=== PATIENT | female | born 1950 | race Hispanic/Latino ===

== ENCOUNTER 2017-03-15 11:54 | Observation (INO) | payer MEDICARE, OTHER ==
--- NOTE | 2017-03-15 12:16 | ED PDOC ---
Arrival/HPI - General Chief Complaint: Shortness Of Breath Time Seen by Provider: 03/15/17 11:55 Historian: Patient - History of Present Illness Time/Duration: Other (2 weeks) Symptom Onset: Gradual Symptom Course: Unchanged Severity Level: Moderate Associated Symptoms (Text): 03/15/17 12:13 Patient has dyspnea on exertion for the last 2 weeks which has been getting worse. She was seen by her PMD and had some blood work drawn. Her hemoglobin was 6.8. She was seen in the office today again by her PMD who did a rectal exam and found it was guaiac positive. She was directed to the emergency department for evaluation and treatment and admission. Patient does have an aortic valve replacement and is on Coumadin. No chest pain or palpitations. No abdominal pain nausea or vomiting. No dizziness or lightheadedness. There is generalized weakness and fatigue. Past Medical History - Infectious Disease Hx of Infectious Diseases: None - Reproductive Menopause: Yes - Endocrine/Metabolic Hx Diabetes Mellitus Type 2: Yes - Psychiatric Hx Substance Use: No - Surgical History Other/Comment: aortic valve replacement 1988 - Anesthesia Hx Anesthesia Reactions: No Hx Malignant Hyperthermia: No Family/Social History - Physician Review Nursing Documentation Reviewed: Yes Family/Social History: Unknown Family HX Smoking Status: Never Smoked Hx Alcohol Use: No Hx Substance Use: No Allergies/Home Meds Allergies/Adverse Reactions: Allergies Penicillins Allergy (Verified 03/15/17 11:57) RASH Home Medications: Home Meds Medication Instructions Recorded Confirmed Atorvastatin [Lipitor] 40 mg PO DAILY 03/15/17 03/15/17 Colchicine [Colcrys] 0.6 mg PO DAILY 03/15/17 03/15/17 Digoxin [Digitek] 250 mcg PO DAILY 03/15/17 03/15/17 Febuxostat [Uloric] 80 mg PO DAILY 03/15/17 03/15/17 Fluoxetine HCl [Fluoxetine HCl] 60 mg PO DAILY 03/15/17 03/15/17 Fluticasone Nasal [Flonase] 50 mcg JD DAILY 03/15/17 03/15/17 Furosemide [Lasix] 20 mg PO DAILY 03/15/17 03/15/17 Glimepiride [amaRYL] 4 mg PO BID 03/15/17 03/15/17 Leflunomide [Arava] 20 mg PO DAILY 03/15/17 03/15/17 Levothyroxine [Synthroid] 175 mcg PO DAILY 03/15/17 03/15/17 Losartan/Hydrochlorothiazide 1 tab PO DAILY 03/15/17 03/15/17 [Losartan-Hctz 100-25 mg Tab] Mirtazapine [Remeron] 15 mg PO DAILY 03/15/17 03/15/17 Potassium Chloride [Klor-Con M10] 10 meq PO DAILY 03/15/17 03/15/17 Tofacitinib Citrate [Xeljanz] 1 mg PO DAILY 03/15/17 03/15/17 Warfarin [Coumadin] 2.5 mg PO DAILY 03/15/17 03/15/17 metFORMIN [glucOPHAGE] 500 mg PO BID 03/15/17 03/15/17 Review of Systems - Physician Review All systems were reviewed & negative as marked: Yes - Review of Systems Constitutional: Fatigue. absent: Fevers Respiratory: SOB. absent: Cough, Sputum, Wheezing Cardiovascular: absent: Chest Pain, Palpitations, Syncope Gastrointestinal: absent: Abdominal Pain, Constipation, Diarrhea, Nausea, Vomiting Genitourinary Female: absent: Dysuria, Frequency, Hematuria Neurological: absent: Headache, Dizziness, Focal Weakness Physical Exam Vital Signs Temp Pulse Resp BP Pulse Ox 03/15/17 12:25 20 03/15/17 12:15 97.8 F 50 L 18 148/48 L 100 Temperature: Afebrile Blood Pressure: Normal Pulse: Regular Respiratory Rate: Normal Appearance: Positive for: Well-Appearing, Non-Toxic, Comfortable Pain Distress: None Mental Status: Positive for: Alert and Oriented X 3 Finger Stick Blood Glucose: 163 - Systems Exam Head: Present: Atraumatic, Normocephalic Pupils: Present: PERRL Extroacular Muscles: Present: EOMI Conjunctiva: Present: Normal Mouth: Present: Moist Mucous Membranes Pharnyx: No: ERYTHEMA, EXUDATE, TONSILS ENLARGED Neck: Present: Normal Range of Motion Respiratory/Chest: Present: Clear to Auscultation, Good Air Exchange, Decreased Breath Sounds. No: Respiratory Distress, Accessory Muscle Use Cardiovascular: Present: Regular Rate and Rhythm, Normal S1, S2, Bradycardic. No: Murmurs Abdomen: Present: Normal Bowel Sounds. No: Tenderness, Distention, Peritoneal Signs, Rebound, Guarding Rectal: Present: Other (Rectal exam deferred as the patient had a rectal exam done in the PMDs office just prior to arrival and it was guaiac positive) Upper Extremity: Present: Normal Inspection. No: Cyanosis, Edema Lower Extremity: Present: Normal Inspection. No: Edema Neurological: Present: GCS=15, CN II-XII Intact, Speech Normal, Motor Func Grossly Intact Skin: Present: Warm, Dry, Normal Color, Pale. No: Rashes Psychiatric: Present: Alert, Oriented x 3, Normal Insight, Normal Concentration Medical Decision Making ED Course and Treatment: 03/15/17 12:16 EKG shows normal sinus rhythm rate approximately 55 with a sinus arrhythmia and ST depressions laterally and inferiorly. No old available for comparison. She denies any chest pain. - Lab Interpretations Lab Results: 03/15/17 12:15 03/15/17 12:15 Lab Results 03/15/17 12:30: Digoxin 2.5 H* 03/15/17 12:15: Sodium 137, Potassium 4.2, Chloride 100, Carbon Dioxide 25, Anion Gap 16, BUN 74 H, Creatinine 2.3 H, Est GFR ( Amer) 26, Est GFR ( Non-Af Amer) 21, Random Glucose 131 H, Calcium 10.2, Total Bilirubin 0.4, AST 39 , ALT 50, Alkaline Phosphatase 88, Lactate Dehydrogenase 728 H, Total Creatine Kinase 158, Troponin I 0.03, Total Protein 7.8, Albumin 4.7, Globulin 3.1, Albumin/Globulin Ratio 1.5, Amylase 94, Lipase 374 H 03/15/17 12:15: PT 18.7 H, INR 1.73 H, APTT 30.0 03/15/17 12:15: WBC 5.6, RBC 2.95 L, Hgb 7.1 L, Hct 23.6 L, MCV 80.0, MCH 24.1 L , MCHC 30.1 L, RDW 17.0 H, Plt Count 204, MPV 12.1 H, Gran % 70.4 H, Lymph % ( Auto) 18.0 L, [place] % (Auto) 10.2 H, Eos % (Auto) 0.9 L, Baso % (Auto) 0.5, Gran # 3.94, Lymph # 1.0 L, [place] # 0.6, Eos # 0.1, Baso # 0.03 03/15/17 12:06: POC Glucose (mg/dL) 163 H 03/15/17 12:00: Urine Color Yellow, Urine Appearance Clear, Urine pH 6.0, Ur Specific [place] 1.010, Urine Protein Negative, Urine Glucose (UA) Negative, Urine Ketones Negative, Urine Blood Negative, Urine Nitrate Negative, Urine Bilirubin Negative, Urine Urobilinogen 0.2, Ur Leukocyte Esterase Negative - RAD Interpretation Radiology Orders: 03/15/17 11:58 CHEST PORTABLE [RAD] Stat - Medication Orders Current Medication Orders: Discontinued Medications Pantoprazole Sodium (Protonix Inj) 40 mg IVP ONCE STA Stop: 03/15/17 12:00 Last Admin: 03/15/17 12:43 Dose: 40 mg Disposition/Present on Arrival - Present on Arrival Any Indicators Present on Arrival: No History of DVT/PE: No History of Uncontrolled Diabetes: Yes Urinary Catheter: No History of Decub. Ulcer: No History Surgical Site Infection Following: None - Disposition Have Diagnosis and Disposition been Completed?: Yes Diagnosis: Gastrointestinal hemorrhage, Anemia, Renal failure, Dehydration, Digoxin toxicity, Elevated lipase Disposition: HOSPITALIZED Disposition Time: 12:56 Patient Plan: Observation Patient Problems: Current Active Problems Problem Status Onset Anemia Acute Dehydration Acute Digoxin toxicity Acute Gastrointestinal hemorrhage Acute Renal failure Acute Condition: FAIR
--- NOTE | 2017-03-15 12:23 | RAD ---
HISTORY: admit COMPARISON: Chest x-ray performed 03/15/17 TECHNIQUE: Chest, one view. FINDINGS: LUNGS: No focal consolidation. Please note that chest x-ray has limited sensitivity for the detection of pulmonary masses. PLEURA: No significant pleural effusion identified. No definite pneumothorax . CARDIOVASCULAR: Median sternotomy wires. Cardiomegaly. Radiopaque oblong density projects over the left heart shadow. OSSEOUS STRUCTURES: Degenerative changes of the spine and shoulders. VISUALIZED UPPER ABDOMEN: Unremarkable. OTHER FINDINGS: None. IMPRESSION: No focal consolidation, significant pleural effusion, or definite pneumothorax identified.
[2017-03-15 12:29] LABS: URINE BILIRUBIN NEGATIVE (NEGATIVE); URINE BLOOD NEGATIVE (NEGATIVE); URINE GLUCOSE (UA) NEGATIVE (NEGATIVE); URINE KETONE NEGATIVE (NEGATIVE); URINE LEUKOCYTE ESTERASE NEGATIVE Leu/uL (NEGATIVE); URINE PROTEIN NEGATIVE mg/dL (<30 mg/dL); URINE UROBILINOGEN 0.2 E.U./dL (<1 E.U./dL)
[2017-03-15 12:31] LABS: ADD MANUAL DIFF? NO
[2017-03-15 12:33] LABS: URINE APPEARANCE CLEAR (CLEAR); URINE COLOR YELLOW (YELLOW)
[2017-03-15 12:37] LABS: BASO # 0.03 K/mm3 (0.0-2.0); BASO % 0.5 % (0.0-3.0); EOS # 0.1 (0.0-0.7); EOS % 0.9 % (1.5-5.0); GRAN # 3.94 (1.4-6.5); GRAN % 70.4 % (50.0-68.0); MEAN CORPUSCULAR HEMOGLOBIN 24.1 pg (25.0-35.0); MEAN CORPUSCULAR HGB CONC 30.1 g/dl (31.0-37.0); MEAN PLATELET VOLUME 12.1 fl (7.0-11.0); MONO # 0.6 (0.1-0.6); MONO % 10.2 % (1.0-6.0); PLATELET COUNT 204 10^3/uL (120.0-450.0); WHITE BLOOD COUNT 5.6 10^3/ul (4.5-11.0)
[2017-03-15 12:43] LABS: HEMATOCRIT 23.6 % (36.0-48.0)
[2017-03-15 12:45] LABS: ALB/GLOB RATIO 1.5 (1.1-1.8); BILIRUBIN,TOTAL 0.4 mg/dL (0.2-1.3); CALCIUM 10.2 mg/dL (8.4-10.5); POTASSIUM 4.2 mmol/L (3.6-5.0); TOTAL PROTEIN 7.8 g/dL (5.8-8.3)
[2017-03-15 12:47] LABS: INR 1.73 (0.93-1.08)
[2017-03-15 12:56] LABS: TROPONIN I 0.03 ng/mL
[2017-03-15] MEDS: Fluticasone Nasal 50 mcg/Spray NAS SCH (16:12)
[2017-03-15] MEDS: Digoxin 250 mcg (0.25 mg) Tab PO SCH (16:12)
[2017-03-15] MEDS: Levothyroxine 175 MCG TAB PO SCH ×2 (16:18→22:48)
[2017-03-15 16:47] VITALS: BMI 24.0
[2017-03-15] MEDS ORDERED: Pneumococcal 23-Valent Vaccine IM ONE (16:48)
[2017-03-15] MEDS: Insulin Reg-LOW-Coverage SC SCH (17:46)
[2017-03-15 18:29] LABS: IRON 30 ug/dL (45-180)
--- NOTE | 2017-03-15 18:51 | CARD ---
APPROVED REPORT EKG Measurement Heart [id number] CT [id number] [id number] <Conclusion> Sinus bradycardia with premature atrial complexes ST & T wave abnormality, consider inferior ischemia ST & T wave abnormality, consider anterolateral ischemia Abnormal ECG
[2017-03-16 07:43] VITALS: O2SAT 98
[2017-03-16] MEDS: Insulin Reg-LOW-Coverage SC SCH ×2 (07:59→12:45)
[2017-03-16 08:06] LABS: HEMATOCRIT 25.5 % (36.0-48.0); MEAN CELL VOLUME 79.2 fL (80.0-105.0); MEAN CORPUSCULAR HEMOGLOBIN 24.8 pg (25.0-35.0); MEAN CORPUSCULAR HGB CONC 31.4 g/dl (31.0-37.0); MEAN PLATELET VOLUME 10.4 fl (7.0-11.0); RED CELL DISTRIBUTION WIDTH 16.3 % (11.5-14.5); WHITE BLOOD COUNT 4.3 10^3/ul (4.5-11.0)
[2017-03-16] MEDS: Levothyroxine 175 MCG TAB PO SCH (09:46)
[2017-03-16] MEDS: Fluticasone Nasal 50 mcg/Spray NAS SCH (09:55)
[2017-03-16] MEDS: Digoxin 250 mcg (0.25 mg) Tab PO SCH (11:20)
[2017-03-16 13:58] VITALS: BP 129/59; PULSE 47; RESP 18; TEMP 98.4
[2017-03-16 15:20] LABS: HEMATOCRIT 28.5 % (36.0-48.0); MEAN CELL VOLUME 78.9 fL (80.0-105.0); MEAN PLATELET VOLUME 10.5 fl (7.0-11.0); RED CELL DISTRIBUTION WIDTH 15.8 % (11.5-14.5); WHITE BLOOD COUNT 5.4 10^3/ul (4.5-11.0)
--- NOTE | 2017-03-18 07:32 | HP ---
HISTORY OF PRESENT ILLNESS: The patient is a 66-year-old white female patient of Dr. Lesly Fernandez. S he came to Emergency Room with extreme weakness. The patient states she went to see Dr. Lesly Fernandez who called ambulance and sent her to Emergency Room. The patient states she has been extremely weak, has been getting short of breath on minimal walking. According to ER notes, also the patient was ev aluated by PMD who did a rectal exam was found to be guaiac positive, so she was sent to the Emergenc y Room. Denies any rectal bleeding, denies any hematuria. Denies any gum bleeding. She has had no history of fever, no chills, no nausea, no vomiting, no diarrhea. PAST MEDICAL HISTORY: 1. Significant for an open heart surgery for aortic valve replacement and she is on Coumadin. 2. History of uterine cancer status post total abdominal hysterectomy. 3. Non-insulin dependent diabetes. 4. Status post aortic valve replacement in 1988. 5. Hypertension. 6. Depression. 7. History of gout. 8. Diabetic neuropathy. 9. Cardiac arrhythmia and chronic atrial fibrillation, and she is being monitored at [facility] arrhythmia center. ALLERGIES: PENICILLIN. MEDICATIONS AT HOME: She is on: 1. Metformin 500 twice a day. 2. Coumadin 2.5 daily. 3. KCl 10 mEq daily. 4. Remeron 15 mg at bedtime. 5. Losartan 100 mg daily. 6. Levothyroxine mcg daily. 7. mg daily. 8. Amaryl 4 mg twice a day. 9. Lasix 20 mg daily. 10. Flonase daily. 11. Fluoxetine 60 mg daily. 12. Uloric 80 mg daily. 13. Digoxin 250 mcg daily. 14. Colchicine 0.6 mg daily. 15. Lipitor 40 mg daily. 16. . 17. Percocet. 18. Iron sulfate. 19. Xeljanz. SOCIAL HISTORY: She is , has grown up children. Lives by herself, is a homemaker. Denies s moking or alcohol use. REVIEW OF SYSTEMS: Generalized weakness and poor appetite. PHYSICAL EXAMINATION: GENERAL: She is awake and alert, communicative. VITAL SIGNS: She is afebrile, pulse 40, respirations 18, blood pressure 125/48. LUNGS: Bilateral fair airflow, no rhonchi or crackle. HEART: S1, S2 audible. ABDOMEN: Soft, nontender, no rebound, no guarding. NEUROLOGIC: She is awake and alert, communicative, moves all extremities. EXTREMITIES: Bilateral leg, no edema. LABORATORY DATA: Upon admission, her WBC 5.6, hemoglobin 7.1, hematocrit 23.6, platelets of 204. PT 18.7, INR 1.73. Chemistry: Sodium 130, TIBC 587, saturation is 5%. On admission, sodium 137, pota ssium 4.2, chloride 100, CO2 25, BUN 72, creatinine 2.3, blood sugar of 131, lipase 374. Urinalysis is unremarkable. Digoxin level is 2.5. X-ray chest, no focal consolidation, significant pleural eff usion. ASSESSMENT: 1. Symptomatic anemia, etiology unknown yet, history of positive guaiac. 2. Status post aortic valve replacement, on Coumadin. 3. Non-insulin dependent diabetes. 4. Hypertension. 5. Hyperlipidemia. 6. Hypothyroidism. PLAN: The patient is receiving right now. She will get another blood transfusion. After that , the patient wants to do GI workup as outpatient. She wants to be discharged. We will order a CBC 1 hour after finishing the transfusion. If it is between 9 and 10, she can be discharged today. Anna Mcfarlane MD cc: [phone] TT: 03/16/2017 14:30:55 dn 03/18/2017 06:31:30
--- NOTE | 2017-04-03 22:51 | DS ---
The patient is a 66-year-old patient of Dr. Lesly Fernandez who came in with extreme weakness with increa sing shortness of breath and difficulty walking. She was also found to have a guaiac positive in PMD 's office. She was found to be anemic with hemoglobin of 7.1. So, she was referred for blood transf usion. The patient received 2 blood transfusions and she wanted to go home. She wanted to have a GI workup done as outpatient since she has a longstanding history of other cardiac issues including aor tic valve replacement and she is on anticoagulation and Coumadin. 1. Non-insulin dependent diabetes. 2. Hypertension. 3. Hyperlipidemia. So she received a blood transfusion and was discharged since her repeat hemoglobin was 9.4 and she wi ll follow with Dr. Lesly Fernandez as an outpatient. Anna Mcfarlane MD cc: [phone] TT: 04/03/2017 22:50:14 an
== END 2017-03-16 16:04 | disposition home or self-care (01) ==
LOC: ED 11:54 → ERH 13:00 → 3RSO 14:44
PROVIDERS: ADMIT Internal Medicine Nephrology; ATTEND Internal Medicine Nephrology
DX: K92.2 Gastrointestinal hemorrhage, unspecified (principal); D64.9 Anemia, unspecified; E86.0 Dehydration; T46.0X5A Adverse effect of cardiac-stimulant glycosides and drugs of similar action, initial encounter; I10 Essential (primary) hypertension; F32.9 Major depressive disorder, single episode, unspecified; M10.9 Gout, unspecified; E09.40 Drug or chemical induced diabetes mellitus with neurological complications with diabetic neuropathy, unspecified; I49.8 Other specified cardiac arrhythmias
CPT/HCPCS: 36415; 36430; 71010; 80053; 80162; 81003; 82150; 82550; 82728; 82948; 83540; 83550; 83615; 83690; 84484; 85025; 85027; 85610; 85730; 86850; 86900; 86920; 93005; 96374; 99285; C9113; G0378; J1756; P9016

== ENCOUNTER 2017-04-22 08:10 | Inpatient (IN) | payer MEDICARE, OTHER ==
[2017-04-22] MEDS ORDERED: Non Formulary Medication (Losartan/Hydrochlorothiazide [Losartan-Hctz 100-25 Mg Tab] 1 TAB PO SCH (10:00)
[2017-04-22 10:08] LABS: BASO # 0.02 K/mm3 (0.0-2.0); BASO % 0.5 % (0.0-3.0); EOS # 0.1 (0.0-0.7); EOS % 1.7 % (1.5-5.0); GRAN # 2.57 (1.4-6.5); GRAN % 60.8 % (50.0-68.0); HEMOGLOBIN 10.2 gm/dL (12.0-16.0); LYMPH # 1.1 (1.2-3.4); LYMPH % 26.3 % (22.0-35.0); MEAN CELL VOLUME 83.5 fL (80.0-105.0); MEAN CORPUSCULAR HEMOGLOBIN 26.2 pg (25.0-35.0); MEAN CORPUSCULAR HGB CONC 31.4 g/dl (31.0-37.0); MEAN PLATELET VOLUME 10.9 fl (7.0-11.0); MONO # 0.5 (0.1-0.6); MONO % 10.7 % (1.0-6.0); PLATELET COUNT 100 10^3/uL (120.0-450.0); RBC 3.89 10^6/uL (3.5-6.1); RED CELL DISTRIBUTION WIDTH 18.7 % (11.5-14.5); WHITE BLOOD COUNT 4.2 10^3/ul (4.5-11.0)
[2017-04-22 10:15] LABS: ALB/GLOB RATIO 1.4 (1.1-1.8); ALBUMIN 4.2 g/dL (3.0-4.8); CALCIUM 9.8 mg/dL (8.4-10.5)
[2017-04-22 10:16] LABS: INR 1.85 (0.93-1.08); PARTIAL THROMBOPLASTIN TIME 32.4 Seconds (23.7-30.8)
[2017-04-22] MEDS: Fluticasone Nasal 50 mcg/Spray NAS SCH (10:30)
[2017-04-22] MEDS: Levothyroxine 175 MCG TAB PO SCH (10:30)
--- NOTE | 2017-04-22 10:46 | ED PDOC ---
Arrival/HPI - General Chief Complaint: Dizziness/Lightheaded Time Seen by Provider: 04/22/17 08:12 Historian: Patient - History of Present Illness Narrative History of Present Illness (Text): 04/22/17 9:21 A 66 year old female, whose past medical history includes aortic valve replacement on warfarin, presents to the emergency department complaining of lightheadedness. Patient reports she had a blood transfusion about 1 month ago in this hospital. At that time, patient was found to be guaiac positive. Patient reports dizziness but denies any vomiting, shortness of breath, pain, palpitations or any other complaints at this time. PMD: Dr. Lesly morel. 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") - Endocrine/Metabolic Hx Diabetes Mellitus Type 2: Yes - Integumentary Other/Comment: multiple bruises to ble and left arm pt on coumadin, 4th toe b/l feet crosses over 5th toe 4th toe right foot has 0.2cm red round dry wound pt keeps small cusions around 4th toes for protection - Musculoskeletal/Rheumatological Hx Musculoskeletal Disorders: Yes (rheumatoid arthritis) Hx Falls: No Hx Gout: Yes Hx Unsteady Gait: Yes (cane) - Genitourinary/Gynecological Hx Genitourinary Disorders: Yes (fibrocystic breasts) - Psychiatric Hx Depression: Yes Hx Substance Use: No - Surgical History Other/Comment: aortic valve replacement 1988, computer chip in left breast for heart monitoring done at [facility] heart rhythm wilson - Anesthesia Hx Anesthesia: Yes Hx Anesthesia Reactions: No Hx Malignant Hyperthermia: No Family/Social History - Physician Review Nursing Documentation Reviewed: Yes Family/Social History: No Known Family HX Smoking Status: Never Smoked Hx Alcohol Use: No Hx Substance Use: No Allergies/Home Meds Allergies/Adverse Reactions: Allergies Penicillins Allergy (Verified 04/22/17 08:56) RASH Home Medications: Home Meds Medication Instructions Recorded Confirmed Atorvastatin [Lipitor] 40 mg PO DAILY 03/15/17 04/22/17 Carboxymethylcellulose Sodium 1 each OP DAILY 03/15/17 04/22/17 [Thera Tears] Cetirizine HCl [Zyrtec] 10 mg PO DAILY 03/15/17 04/22/17 Colchicine [Colcrys] 0.6 mg PO DAILY 03/15/17 04/22/17 Febuxostat [Uloric] 80 mg PO DAILY 03/15/17 04/22/17 Ferrous Sulfate [Feosol] 325 mg PO BID 03/15/17 04/22/17 Fluoxetine HCl 60 mg PO DAILY 03/15/17 04/22/17 Fluticasone Nasal [Flonase] 50 mcg JD DAILY 03/15/17 04/22/17 Furosemide [Lasix] 20 mg PO QOTHERDAY 03/15/17 04/22/17 Glimepiride [amaRYL] 4 mg PO BID 03/15/17 04/22/17 Leflunomide [Arava] 20 mg PO DAILY 03/15/17 04/22/17 Levothyroxine [Synthroid] 175 mcg PO DAILY 03/15/17 04/22/17 Losartan/Hydrochlorothiazide 1 tab PO DAILY 03/15/17 04/22/17 [Losartan-Hctz 100-25 mg Tab] Mirtazapine [Remeron] 15 mg PO HS 03/15/17 04/22/17 Pzrpr-6-Ejuk Ethyl Esters [OMEGA 3] 500 mg PO DAILY 03/15/17 04/22/17 Oxycodone HCl/Acetaminophen 1 tab PO DAILY PRN 03/15/17 04/22/17 [Oxycodone-Acetaminophen 5-325] Potassium Chloride [Klor-Con M10] 10 meq PO QOTHERDAY 03/15/17 04/22/17 Tofacitinib Citrate [Xeljanz] 1 mg PO DAILY 03/15/17 04/22/17 Warfarin [Coumadin] 2.5 mg PO DAILY 03/15/17 04/22/17 Review of Systems - Physician Review All systems were reviewed & negative as marked: Yes - Review of Systems Constitutional: Other (lightheadedness) Respiratory: absent: SOB Cardiovascular: absent: Palpitations Gastrointestinal: absent: Abdominal Pain, Vomiting Neurological: Dizziness Physical Exam - Physical Exam Narrative Physical Exam (Text): Constitutional: No acute distress. Head: Normocephalic. Atraumatic. Eyes: PERRL. ENT: Moist mucous membranes. Neck: Supple. Cardiovascular: Regular rate. Audible valve. Chest: No tenderness. Respiratory: Clear to auscultation bilaterally. GI: Soft. Nontender. Nondistended. Back: No CVA tenderness. Musculoskeletal: No tenderness or swelling of extremities. Skin: No rash. Neurologic: Alert, no focal deficit. Lower extremity: cap refill < 2 sec Vital Signs Reviewed: Yes Vital Signs Temp Pulse Resp BP Pulse Ox 04/22/17 11:51 109/66 04/22/17 11:30 62 18 104/51 L 98 04/22/17 08:52 98.7 F 72 18 119/67 100 Temperature: Afebrile Blood Pressure: Normal Pulse: Regular Respiratory Rate: Normal Appearance: Positive for: Well-Appearing, Non-Toxic, Comfortable Pain Distress: None Mental Status: Positive for: Alert and Oriented X 3 Medical Decision Making ED Course and Treatment: 04/22/17 10:41 Impression: A 66 year old female with lightheadedness with recent GI bleed and anemia requiring blood transfusion. Plan: -- EKG -- chest xray -- labs -- Urinalysis -- Reassess and disposition Prior Visits: Notes and results from previous visits were reviewed. Patient last reported to the emergency department on 03/15/17 for evaluation of above mentioned. Progress Notes: EKG: Ordered, reviewed, and independently interpreted the EKG. Rate : 70 BPM Rhythm : NSR Interpretation : ST depressions/T wave inversions, lateral leads similar to previous EKG about a month ago. Chest xray: Creator : Santhosh Varela MD 04/22/17 10:55 IMPRESSION: No active disease. Dr. Cantrell accepts patient to his service. Dr. Knapp notified for GI bleed , will perform colonoscopy. - Lab Interpretations Lab Results: 04/22/17 09:50 04/22/17 09:50 Lab Results 04/22/17 09:50: Digoxin < 0.4 L 04/22/17 09:50: PT 20.0 H, INR 1.85 H, APTT 32.4 H 04/22/17 09:50: Sodium 142, Potassium 4.4, Chloride 104, Carbon Dioxide 29, Anion Gap 13, BUN 60 H, Creatinine 1.6 H, Est GFR ( Amer) 39, Est GFR ( Non-Af Amer) 32, Random Glucose 73, Calcium 9.8, Total Bilirubin 0.4, AST 58 H, ALT 72 H, Alkaline Phosphatase 83, Total Protein 7.3, Albumin 4.2, Globulin 3.0 , Albumin/Globulin Ratio 1.4 04/22/17 09:50: WBC 4.2 L D, RBC 3.89, Hgb 10.2 L, Hct 32.5 L, MCV 83.5, MCH 26.2, MCHC 31.4, RDW 18.7 H, Plt Count 100 L, MPV 10.9, Gran % 60.8, Lymph % ( Auto) 26.3, [place] % (Auto) 10.7 H, Eos % (Auto) 1.7, Baso % (Auto) 0.5, Gran # 2.57, Lymph # 1.1 L, [place] # 0.5, Eos # 0.1, Baso # 0.02 I have reviewed the lab results: Yes - RAD Interpretation Radiology Orders: 04/22/17 09:43 CHEST PORTABLE [RAD] Stat - EKG Interpretation Interpreted by ED Physician: Yes Type: 12 lead EKG - Medication Orders Current Medication Orders: Atorvastatin Calcium (Lipitor) 40 mg PO DAILY [facility] Last Admin: 04/22/17 10:30 Dose: Colchicine (Colocrys) 0.6 mg PO DAILY [facility] Last Admin: 04/22/17 10:30 Dose: Fluticasone Propionate (Flonase) 1 actuation JD DAILY [facility] Last Admin: 04/22/17 10:30 Dose: Furosemide (Lasix) 20 mg PO QOTHERDAY [facility] Last Admin: 04/22/17 11:51 Dose: 20 mg Glimepiride (Amaryl) 4 mg PO BID [facility] Last Admin: 04/22/17 10:30 Dose: Hydrochlorothiazide (Hydrodiuril) 25 mg PO DAILY [facility] Last Admin: 04/22/17 10:30 Dose: Insulin Human Regular (Humulin R Med) 0 units SC [facility] PRN Reason: Protocol Last Admin: 04/22/17 11:53 Dose: Levothyroxine Sodium (Synthroid) 175 mcg PO DAILY [facility] Last Admin: 04/22/17 10:30 Dose: Losartan Potassium (Cozaar) 100 mg PO DAILY [facility] Last Admin: 04/22/17 10:30 Dose: Mirtazapine (Remeron) 15 mg PO [facility] - Scribe Statement The provider has reviewed the documentation as recorded by the Dwight Schilling Provider Scribe Attestation: All medical record entries made by the Julesibmarcela were at my direction and personally dictated by me. I have reviewed the chart and agree that the record accurately reflects my personal performance of the history, physical exam, medical decision making, and the department course for this patient. I have also personally directed, reviewed, and agree with the discharge instructions and disposition. Disposition/Present on Arrival - Present on Arrival Any Indicators Present on Arrival: No History of DVT/PE: No History of Uncontrolled Diabetes: No Urinary Catheter: No History of Decub. Ulcer: No History Surgical Site Infection Following: None - Disposition Have Diagnosis and Disposition been Completed?: Yes Diagnosis: GI bleed, Symptomatic anemia Disposition: HOSPITALIZED Disposition Time: 10:23 Patient Plan: Admission Condition: FAIR
--- NOTE | 2017-04-22 10:54 | RAD ---
HISTORY: weakness COMPARISON: 03/15/2017 FINDINGS: LUNGS: No active pulmonary disease. PLEURA: No significant pleural effusion identified, no pneumothorax apparent. CARDIOVASCULAR: Mild cardiomegaly. Sternal wires are present OSSEOUS STRUCTURES: No significant abnormalities. VISUALIZED UPPER ABDOMEN: Normal. OTHER FINDINGS: None. IMPRESSION: No active disease.
[2017-04-22 11:22] LABS: URINE BILIRUBIN NEGATIVE (NEGATIVE); URINE BLOOD NEGATIVE (NEGATIVE); URINE GLUCOSE (UA) NEGATIVE (NEGATIVE); URINE LEUKOCYTE ESTERASE NEGATIVE Leu/uL (NEGATIVE); URINE NITRATE NEGATIVE (NEGATIVE); URINE PROTEIN NEGATIVE mg/dL (<30 mg/dL); URINE UROBILINOGEN 0.2 E.U./dL (<1 E.U./dL)
[2017-04-22 11:26] LABS: URINE APPEARANCE CLEAR (CLEAR); URINE COLOR YELLOW (YELLOW)
[2017-04-22] MEDS: Insulin Reg-MEDIUM-Coverage SC SCH ×3 (11:53→22:52)
[2017-04-22 13:34] VITALS: BMI 25.4
[2017-04-22] MEDS ORDERED: Bisacodyl 5mg EC Tab PO ONE (14:15)
--- NOTE | 2017-04-22 14:21 | CP.PCM.CON ---
<Dhara Dowd - Last Filed: 04/22/17 14:59> History of Present Illness - History of Present Illness History of Present Illness: Seen and examined in the ER earlier today, Chart reviewed. Request for consult is for : Anemia/GI Bleed HPI: This is a 66 year old female with a PMH of [place] Aortic valve on Coumadin , monitor chip at [facility] for cardiac arrhythmia, for heart rhythm center, recent admission for symptomatic Anemia and guaic positive, patient now comes with complaints of lightheadedness, and blood per rectum and weakness. Does have nausea but no vomiting. No c/o weight loss, abdominal pain, sob or chest pain. Last colon was 7 years ago no history of polyps, does not recall having EGD. Was taking Lovenox at home,last dose 04/21/17. PMH: [place] Aortic valve, uterine cancer, NIDDM, htn,depression, gout, diabetic neuropathy, cardiac arrhythmia and chronic atrial fibrillation and monitor [facility] arrythmia center. SHX: hysterectomy, valve replacement FHX: DM, HD, cervical cancer Social HX: denies smoking, etoh, drugs MEDS: reviewed as per MAR Allergies: Penicillins ROS: systems reviewed with positive findings, see MAR Past Patient History - Infectious Disease Hx of Infectious Diseases: None - Past Social History Smoking Status: Never Smoked - CARDIAC Hx Cardiac Disorders: Yes Hx Peripheral Edema: Yes (ble +2 pitting) Other/Comment: aortic valve replacement 1988, computer chip implanted in left breast for heart monitoring at [facility] heart rhythm center - HEENT Hx HEENT Problems: Yes (eyeglases) - RENAL Hx Renal Failure: Yes ("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 gout") - ENDOCRINE/METABOLIC Hx Diabetes Mellitus Type 2: Yes - INTEGUMENTARY Other/Comment: multiple bruises to ble and left arm pt on coumadin, 4th toe b/l feet crosses over 5th toe 4th toe right foot has 0.2cm red round dry wound pt keeps small cusions around 4th toes for protection - MUSCULOSKELETAL/RHEUMATOLOGICAL Hx Musculoskeletal Disorders: Yes (rheumatoid arthritis) Hx Falls: No Hx Gout: Yes Hx Unsteady Gait: Yes (cane) - GENITOURINARY/GYNECOLOGICAL Hx Genitourinary Disorders: Yes (fibrocystic breasts) - PSYCHIATRIC Hx Depression: Yes - SURGICAL HISTORY Other/Comment: aortic valve replacement 1988, computer chip in left breast for heart monitoring done at [facility] heart rhythm center - ANESTHESIA Hx Anesthesia: Yes Hx Anesthesia Reactions: No Hx Malignant Hyperthermia: No Meds Allergies/Adverse Reactions: Allergies Allergy/AdvReac Type Severity Reaction Status Date / Time Penicillins Allergy RASH Verified 04/22/17 08:56 - Medications Medications: Current Medications Atorvastatin Calcium (Lipitor) 40 mg PO DAILY [facility] Last Admin: 04/22/17 10:30 Dose: Not Given Colchicine (Colocrys) 0.6 mg PO DAILY [facility] Last Admin: 04/22/17 10:30 Dose: Not Given Fluoxetine HCl (Prozac) 60 mg PO DAILY [facility] Fluticasone Propionate (Flonase) 1 actuation JD DAILY [facility] Last Admin: 04/22/17 10:30 Dose: Not Given Furosemide (Lasix) 20 mg PO QOTHERDAY [facility] Last Admin: 04/22/17 11:30 Dose: Not Given Hydrochlorothiazide (Hydrodiuril) 25 mg PO DAILY [facility] Last Admin: 04/22/17 10:30 Dose: Not Given Insulin Human Regular (Humulin R Med) 0 units SC [facility] PRN Reason: Protocol Last Admin: 04/22/17 11:53 Dose: Not Given Levothyroxine Sodium (Synthroid) 175 mcg PO DAILY [facility] Last Admin: 04/22/17 10:30 Dose: Not Given Losartan Potassium (Cozaar) 100 mg PO DAILY [facility] Last Admin: 04/22/17 10:30 Dose: Not Given Mirtazapine (Remeron) 30 mg PO [facility] Polyethylene Glycol/Electrolytes (Golytely) 4,000 ml PO ONCE ONE Stop: 04/22/17 16:01 Potassium Chloride (Klor-Con 10) 10 meq PO QOTHERDAY [facility] Physical Exam - Constitutional Appears: No Acute Distress - Head Exam Head Exam: NORMAL INSPECTION - Eye Exam Eye Exam: Normal appearance. absent: Scleral icterus - ENT Exam ENT Exam: Mucous Membranes Moist - Neck Exam Neck exam: Positive for: Normal Inspection - Respiratory Exam Respiratory Exam: Clear to Auscultation Bilateral, NORMAL BREATHING PATTERN. absent: Respiratory Distress - Cardiovascular Exam Cardiovascular Exam: +S1, +S2 - GI/Abdominal Exam GI & Abdominal Exam: Normal Bowel Sounds, Soft. absent: Distended, Organomegaly , Rebound, Tenderness - Extremities Exam Extremities exam: Positive for: normal inspection, pedal pulses present. Negative for: calf tenderness, pedal edema - Neurological Exam Neurological exam: Alert, Oriented x3 - Skin Skin Exam: Dry, Warm Results - Vital Signs Recent Vital Signs: Last Vital Signs Temp 98.4 F 04/22/17 13:15 Pulse 80 04/22/17 13:15 Resp 18 04/22/17 13:15 BP 117/60 04/22/17 13:15 Pulse Ox 97 04/22/17 12:30 - Labs Result Diagrams: 04/22/17 09:50 04/22/17 09:50 Labs: Laboratory Results - last 24 hr 04/22/17 04/22/17 04/22/17 10:45 10:54 11:43 POC Glucose (mg/dL) 73 Urine Color Yellow Urine Appearance Clear Urine pH 7.0 Ur Specific [place] 1.010 Urine Protein Negative Urine Glucose (UA) Negative Urine Ketones Negative Urine Blood Negative Urine Nitrate Negative Urine Bilirubin Negative Urine Urobilinogen 0.2 Ur Leukocyte Esterase Negative Blood Type A POSITIVE Antibody Screen Negative BBK History Checked Patient has bt 04/22/17 12:29 POC Glucose (mg/dL) 111 H Urine Color Urine Appearance Urine pH Ur Specific [place] Urine Protein Urine Glucose (UA) Urine Ketones Urine Blood Urine Nitrate Urine Bilirubin Urine Urobilinogen Ur Leukocyte Esterase Blood Type Antibody Screen BBK History Checked Assessment & Plan - Assessment and Plan (Free Text) Assessment: ASSESSMENT: GI Bleed, r/o angiodysplasia, PUD, polyps, malignancy Anemia Aortic valve replacement Cardiac arrhythmia, monitored in [facility] arrhythmia [facility]. DM HTN PLAN: clear liquid bowel prep: Golytle at 4 pm, see orders check labs in am: cbc,bmp,pt/ptt npo 12 midnight except meds Thank you for this consult and for allowing us to participate in your patient care, will make further recommendations based upon clinical course. Seen and discussed with Dr. Knapp. <Jayson Knapp V - Last Filed: 04/23/17 00:45> Meds - Medications Medications: Current Medications Atorvastatin Calcium (Lipitor) 40 mg PO DAILY [facility] Last Admin: 04/22/17 10:30 Dose: Not Given Colchicine (Colocrys) 0.6 mg PO DAILY [facility] Last Admin: 04/22/17 10:30 Dose: Not Given Fluoxetine HCl (Prozac) 60 mg PO DAILY [facility] Fluticasone Propionate (Flonase) 1 actuation JD DAILY [facility] Last Admin: 04/22/17 10:30 Dose: Not Given Furosemide (Lasix) 20 mg PO QOTHERDAY [facility] Last Admin: 04/22/17 11:30 Dose: Not Given Hydrochlorothiazide (Hydrodiuril) 25 mg PO DAILY [facility] Last Admin: 04/22/17 10:30 Dose: Not Given Insulin Human Regular (Humulin R Med) 0 units SC [facility] PRN Reason: Protocol Last Admin: 04/22/17 22:52 Dose: Not Given Levothyroxine Sodium (Synthroid) 175 mcg PO DAILY [facility] Last Admin: 04/22/17 10:30 Dose: Not Given Losartan Potassium (Cozaar) 100 mg PO DAILY [facility] Last Admin: 04/22/17 10:30 Dose: Not Given Mirtazapine (Remeron) 30 mg PO HS [facility] Last Admin: 04/22/17 22:48 Dose: 30 mg Potassium Chloride (Klor-Con 10) 10 meq PO QOTHERDAY [facility] Results - Vital Signs Recent Vital Signs: Last Vital Signs Temp 98.4 F 04/22/17 16:16 Pulse 64 04/22/17 16:16 Resp 18 04/22/17 16:16 BP 111/58 L 04/22/17 16:16 Pulse Ox 97 04/22/17 16:16 - Labs Result Diagrams: 04/22/17 09:50 04/22/17 09:50 Labs: Laboratory Results - last 24 hr 04/22/17 04/22/17 04/22/17 10:45 10:54 11:43 POC Glucose (mg/dL) 73 Urine Color Yellow Urine Appearance Clear Urine pH 7.0 Ur Specific [place] 1.010 Urine Protein Negative Urine Glucose (UA) Negative Urine Ketones Negative Urine Blood Negative Urine Nitrate Negative Urine Bilirubin Negative Urine Urobilinogen 0.2 Ur Leukocyte Esterase Negative Blood Type A POSITIVE Antibody Screen Negative BBK History Checked Patient has bt 04/22/17 12:29 POC Glucose (mg/dL) 111 H Urine Color Urine Appearance Urine pH Ur Specific [place] Urine Protein Urine Glucose (UA) Urine Ketones Urine Blood Urine Nitrate Urine Bilirubin Urine Urobilinogen Ur Leukocyte Esterase Blood Type Antibody Screen BBK History Checked Attending/Attestation - Attestation I have personally seen and examined this patient.: Yes I have fully participated in the care of the patient.: Yes I have reviewed all pertinent clinical information: Yes Notes (Text): INR is elevated 1.8mm. Patient
[2017-04-22] MEDS ORDERED: Peg-Electrolyte Oral Soln 4L (Golytely) PO ONE (16:00)
--- NOTE | 2017-04-22 17:38 | CARD ---
APPROVED REPORT EKG Measurement Heart [id number] <Conclusion> Normal sinus rhythm ST & T wave abnormality, consider lateral ischemia Abnormal ECG
[2017-04-23 07:36] LABS: BASO # 0.01 K/mm3 (0.0-2.0); BASO % 0.3 % (0.0-3.0); EOS # 0.1 (0.0-0.7); EOS % 2.6 % (1.5-5.0); GRAN # 2.48 (1.4-6.5); GRAN % 64.4 % (50.0-68.0); LYMPH # 0.8 (1.2-3.4); MEAN CELL VOLUME 84.2 fL (80.0-105.0); MEAN CORPUSCULAR HEMOGLOBIN 26.4 pg (25.0-35.0); MEAN CORPUSCULAR HGB CONC 31.3 g/dl (31.0-37.0); MEAN PLATELET VOLUME 11.2 fl (7.0-11.0); MONO # 0.5 (0.1-0.6); MONO % 11.7 % (1.0-6.0); PLATELET COUNT 105 10^3/uL (120.0-450.0); RBC 3.79 10^6/uL (3.5-6.1); RED CELL DISTRIBUTION WIDTH 18.7 % (11.5-14.5); WHITE BLOOD COUNT 3.9 10^3/ul (4.5-11.0)
[2017-04-23 07:46] LABS: INR 1.45 (0.93-1.08); PARTIAL THROMBOPLASTIN TIME 31.5 Seconds (23.7-30.8); PROTHROMBIN TIME 15.7 Seconds (9.9-11.8)
[2017-04-23 07:50] LABS: CALCIUM 9.8 mg/dL (8.4-10.5)
[2017-04-23] MEDS: Insulin Reg-MEDIUM-Coverage SC SCH ×3 (08:16→16:47)
[2017-04-23 08:37] VITALS: TEMP 98.2
[2017-04-23] MEDS: Levothyroxine 175 MCG TAB PO SCH (09:52)
[2017-04-23] MEDS: Fluticasone Nasal 50 mcg/Spray NAS SCH (10:01)
[2017-04-23] MEDS ORDERED: Propofol 10 mg/ml Inj (20 ML) ONE (17:49)
[2017-04-23] MEDS ORDERED: Sodium Chloride 0.9% 1,000 ML IV SCH (19:00)
[2017-04-23 19:17] VITALS: BP 142/63; PULSE 60; RESP 18; O2SAT 98
--- NOTE | 2017-04-23 21:36 | CP.PCM.HP ---
History of Present Illness - History of Present Illness History of Present Illness: Pt with anemia, Has hx of hem + stool. She is on coumadin. No pain. Present on Admission - Present on Admission Any Indicators Present on Admission: No Review of Systems - Review of Systems All systems: reviewed and no additional remarkable complaints except - Constitutional Constitutional: absent: Fatigue, Malaise, Night Sweats, Weakness - EENT Eyes: absent: Change in Vision, Diplopia, Irritation, Loss of Peripheral Vision , Photophobia Nose/Mouth/Throat: absent: Nasal Trauma, Bleeding Gums, Change in Voice - Breasts Breasts: absent: Mass - Cardiovascular Cardiovascular: absent: Chest Pain with Activity, Irregular Heart Rhythm - Respiratory Respiratory: absent: Stridor, Excessive Mucous Production - Gastrointestinal Gastrointestinal: absent: Dyspepsia, Excessive Flatus, Hematemesis, Hematochezia - Genitourinary Genitourinary: absent: Hematuria, Pyuria, Nocturia - Musculoskeletal Musculoskeletal: absent: Joint Swelling, Limited Range of Motion, Muscle Weakness, Myalgias - Neurological Neurological: absent: Disequilibrium, Frequent Falls, Memory Loss, Paresthesias , Other Visual Disturbances - Endocrine Endocrine: absent: Palpitations, Polydipsia, Polyphagia Past Patient History - Infectious Disease Hx of Infectious Diseases: None - Past Social History Smoking Status: Never Smoked - CARDIAC Hx Cardiac Disorders: Yes Hx Peripheral Edema: Yes (ble +2 pitting) Other/Comment: aortic valve replacement 1988, computer chip implanted in left breast for heart monitoring at [facility] rhythm [facility] - HEENT Hx HEENT Problems: Yes (eyeglases) - RENAL Hx Renal Failure: Yes ("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 gout") - ENDOCRINE/METABOLIC Hx Diabetes Mellitus Type 2: Yes - HEMATOLOGICAL/ONCOLOGICAL Hx Blood Transfusions: Yes Hx Blood Transfusion Reaction: No - INTEGUMENTARY Other/Comment: multiple bruises to ble and left arm pt on coumadin, 4th toe b/l feet crosses over 5th toe 4th toe right foot has 0.2cm red round dry wound pt keeps small cusions around 4th toes for protection - MUSCULOSKELETAL/RHEUMATOLOGICAL Hx Musculoskeletal Disorders: Yes (rheumatoid arthritis) Hx Falls: No Hx Gout: Yes Hx Unsteady Gait: Yes (cane) - GENITOURINARY/GYNECOLOGICAL Hx Genitourinary Disorders: Yes (fibrocystic breasts) - PSYCHIATRIC Hx Depression: Yes - SURGICAL HISTORY Other/Comment: aortic valve replacement 1988, computer chip in left breast for heart monitoring done at [facility] rhythm center - ANESTHESIA Hx Anesthesia Reactions: No Hx Malignant Hyperthermia: No Meds Home Medications: Home Medication List Medication Instructions Recorded Confirmed Type Omeprazole 40 mg PO DAILY #30 capsule. 04/23/17 Rx Allergies/Adverse Reactions: Allergies Allergy/AdvReac Type Severity Reaction Status Date / Time Penicillins Allergy RASH Verified 04/22/17 08:56 Physical Exam - Constitutional Appears: Well - Head Exam Head Exam: ATRAUMATIC, NORMAL INSPECTION, NORMOCEPHALIC - Eye Exam Eye Exam: EOMI, Normal appearance, PERRL Pupil Exam: NORMAL ACCOMODATION, PERRL - ENT Exam ENT Exam: Mucous Membranes Dry - Neck Exam Neck exam: Positive for: Normal Inspection - Respiratory Exam Respiratory Exam: Clear to Auscultation Bilateral, NORMAL BREATHING PATTERN - Cardiovascular Exam Cardiovascular Exam: REGULAR RHYTHM, RRR. absent: +S1, +S2 - GI/Abdominal Exam GI & Abdominal Exam: Normal Bowel Sounds, Soft. absent: Hypoactive Bowel Sounds , Tenderness - Neurological Exam Neurological exam: Alert, CN II-XII Intact, Normal Gait, Oriented x3, Reflexes Normal - Psychiatric Exam Psychiatric exam: Normal Affect, Normal Mood - Skin Skin Exam: Dry, Intact, Normal Color, Warm Results - Vital Signs Recent Vital Signs: Last Vital Signs Temp 98.2 F 04/23/17 19:15 Pulse 60 04/23/17 19:15 Resp 18 04/23/17 19:15 BP 142/63 04/23/17 19:15 Pulse Ox 98 04/23/17 19:15 - Labs Result Diagrams: 04/23/17 06:45 04/23/17 06:45 Labs: Laboratory Results - last 24 hr 04/23/17 04/23/17 04/23/17 06:45 06:45 06:45 WBC 3.9 L RBC 3.79 Hgb 10.0 L Hct 31.9 L MCV 84.2 MCH 26.4 MCHC 31.3 RDW 18.7 H Plt Count 105 L MPV 11.2 H Gran % 64.4 Lymph % (Auto) 21.0 L [place] % (Auto) 11.7 H Eos % (Auto) 2.6 Baso % (Auto) 0.3 Gran # 2.48 Lymph # 0.8 L [place] # 0.5 Eos # 0.1 Baso # 0.01 PT 15.7 H INR 1.45 H APTT 31.5 H Sodium 143 Potassium 3.8 Chloride 104 Carbon Dioxide 27 Anion Gap 16 BUN 37 H Creatinine 1.3 Est GFR ( Amer) 49 Est GFR (Non-Af Amer) 41 Random Glucose 105 Calcium 9.8 Assessment & Plan - Assessment and Plan (Free Text) Assessment: Heme positive stool Anemia Plan: will bring into hospital Will need colonoscopy. GI evaluation. Spoke to PMD Dr Fernandez - Date & Time Date: 04/23/17 Time: 09:30
[2017-04-24] MEDS ORDERED: Potassium Chloride 10 mEq ER Tab PO SCH (10:00)
== END 2017-04-23 21:59 | disposition home or self-care (01) | DRG 377 ==
LOC: ED 08:10 → ERH 10:34 → 5RNO 12:12
PROVIDERS: ADMIT Internal Medicine Nephrology; ATTEND Internal Medicine Nephrology
PROC: 0DB68ZX Excision of Stomach, Via Natural or Artificial Opening Endoscopic, Diagnostic (ICD-10-PCS; principal; 2017-04-23 16:15)
PROC: 0DJD8ZZ Inspection of Lower Intestinal Tract, Via Natural or Artificial Opening Endoscopic (ICD-10-PCS; 2017-04-23 16:15)
DX: K92.2 Gastrointestinal hemorrhage, unspecified (principal); K56.2 Volvulus; E11.40 Type 2 diabetes mellitus with diabetic neuropathy, unspecified; I48.2 Chronic atrial fibrillation; K26.9 Duodenal ulcer, unspecified as acute or chronic, without hemorrhage or perforation; K29.50 Unspecified chronic gastritis without bleeding; K31.9 Disease of stomach and duodenum, unspecified; I10 Essential (primary) hypertension; K64.8 Other hemorrhoids; M10.9 Gout, unspecified; D64.9 Anemia, unspecified; F32.9 Major depressive disorder, single episode, unspecified; Z79.01 Long term (current) use of anticoagulants; Z95.2 Presence of prosthetic heart valve; Z85.42 Personal history of malignant neoplasm of other parts of uterus; Z79.84 Long term (current) use of oral hypoglycemic drugs; Z88.0 Allergy status to penicillin

== ENCOUNTER 2018-07-22 14:54 | Inpatient (IN) | payer MEDICARE, OTHER ==
[2018-07-22] MEDS ORDERED: Pantoprazole 40mg/100mL NS 40 MG/100 ML BAG IVPB SCH (16:15)
[2018-07-22 16:20] LABS: BASO # 0.02 K/mm3 (0.0-2.0); BASO % 0.3 % (0.0-3.0); EOS # 0.2 (0.0-0.7); EOS % 2.8 % (1.5-5.0); GRAN # 4.18 (1.4-6.5); GRAN % 72.6 % (50.0-68.0); HEMOGLOBIN 9.8 g/dL (12.0-16.0); LYMPH # 0.8 (1.2-3.4); LYMPH % 13.4 % (22.0-35.0); MEAN CELL VOLUME 83.9 fl (80.0-105.0); MEAN CORPUSCULAR HEMOGLOBIN 26.8 pg (25.0-35.0); MEAN CORPUSCULAR HGB CONC 31.9 g/dl (31.0-37.0); MEAN PLATELET VOLUME 11.4 fl (7.0-11.0); MONO # 0.6 (0.1-0.6); MONO % 10.9 % (1.0-6.0); RBC 3.66 10^6/uL (3.5-6.1); RED CELL DISTRIBUTION WIDTH 15.6 % (11.5-14.5); WHITE BLOOD COUNT 5.8 10^3/ul (4.5-11.0)
--- NOTE | 2018-07-22 16:21 | ED PDOC ---
Arrival/HPI - General Chief Complaint: GI Problem Time Seen by Provider: 07/22/18 15:13 Historian: Patient - History of Present Illness Narrative History of Present Illness (Text): 07/22/18 16:14 68 year old female, with past medical history of [place] Aortic valve on Coumadin, uterine cancer, NIDDM, htn,depression, gout, diabetic neuropathy, cardiac arrhythmia and chronic atrial fibrillation, presents to the Emergency Department complaining of bloody black tarry stool since 2 weeks. Patient informs associated left lower quadrant abdominal pain and lightheadedness but denies any loss of conscious since onset. Patient informs visiting her PMD with the presented symptoms, who subsequently referred her to the Emergency Department for evaluation of possible GI bleed. Patient denies any other associated somatic complaints. Patient denies any fever, chills, nausea, vomiting, chest pain, shortness of breath, neck pain, back pain, headache, or any other complaints. PMD: Dr. Fernandez GI: Dr. Knapp [facility] Physicist: YESICA Time/Duration: > week (2 weeks) Symptom Onset: Gradual Symptom Course: Unchanged Activities at Onset: Light Context: Home Past Medical History - Provider Review Nursing Documentation Reviewed: Yes - Infectious Disease Hx of Infectious Diseases: None - Cardiac Hx Cardiac Disorders: Yes Hx Peripheral Edema: Yes - Pulmonary Hx Respiratory Disorders: No Other/Comment: IMPLANTED HR MONITOR - Neurological Hx Neurological Disorder: Yes HX Cerebrovascular Accident: Yes Other/Comment: NEUROPATHY - HEENT Hx HEENT Disorder: Yes (eyeglases) - Renal Hx Renal Disorder: Yes Hx Renal Failure: Yes - Endocrine/Metabolic Hx Endocrine Disorders: Yes Hx Diabetes Mellitus Type 2: Yes - Hematological/Oncological Hx Blood Disorders: Yes Hx Blood Transfusions: Yes - Integumentary Other/Comment: multiple bruises to ble and left arm pt on coumadin, 4th toe b/l feet crosses over 5th toe 4th toe right foot has 0.2cm red round dry wound pt keeps small cusions around 4th toes for protection - Musculoskeletal/Rheumatological Hx Musculoskeletal Disorders: Yes (rheumatoid arthritis) Hx Falls: No Hx Gout: Yes Hx Unsteady Gait: Yes (cane) - Gastrointestinal Hx Gastrointestinal Disorders: Yes - Genitourinary/Gynecological Hx Genitourinary Disorders: Yes (fibrocystic breasts) - Psychiatric Hx Psychophysiologic Disorder: Yes Hx Depression: Yes Hx Substance Use: No - Surgical History Other/Comment: aortic valve replacement 1988, computer chip in left breast for heart monitoring done at [facility] rhythm center - Anesthesia Hx Anesthesia Reactions: No Hx Malignant Hyperthermia: No Family/Social History - Physician Review Nursing Documentation Reviewed: Yes Family/Social History: No Known Family HX Smoking Status: Never Smoked Hx Alcohol Use: No Hx Substance Use: No Allergies/Home Meds Allergies/Adverse Reactions: Allergies Penicillins Allergy (Verified 04/22/17 08:56) RASH Home Medications: Home Meds Medication Instructions Recorded Confirmed Atorvastatin [Lipitor] 40 mg PO DAILY 03/15/17 07/22/18 Carboxymethylcellulose Sodium 1 each OP DAILY 03/15/17 07/22/18 [Thera Tears] Cetirizine HCl [Zyrtec] 10 mg PO DAILY 03/15/17 07/22/18 Colchicine [Colcrys] 0.6 mg PO DAILY 03/15/17 07/22/18 Febuxostat [Uloric] 80 mg PO DAILY 03/15/17 07/22/18 Ferrous Sulfate [Feosol] 2 tab PO DAILY 03/15/17 07/22/18 Fluoxetine HCl 60 mg PO DAILY 03/15/17 07/22/18 Fluticasone Nasal [Flonase] 50 mcg JD DAILY 03/15/17 07/22/18 Furosemide [Lasix] 40 mg PO QOTHERDAY 03/15/17 07/22/18 Leflunomide [Arava] 20 mg PO DAILY 03/15/17 07/22/18 Levothyroxine [Synthroid] 175 mcg PO DAILY 03/15/17 07/22/18 Mirtazapine [Remeron] 30 mg PO HS 03/15/17 07/22/18 [id number]-[id number] Ethyl Esters [OMEGA 3] 500 mg PO DAILY 03/15/17 07/22/18 Oxycodone HCl/Acetaminophen 1 tab PO DAILY PRN 03/15/17 07/22/18 [Oxycodone-Acetaminophen 5-325] Potassium Chloride [Klor-Con M10] 10 meq PO QOTHERDAY 03/15/17 07/22/18 Tofacitinib Citrate [Xeljanz] 1 mg PO DAILY 03/15/17 07/22/18 Azilsartan Med/Chlorthalidone 1 tab PO DAILY 07/22/18 07/22/18 [Edarbyclor 40-12.5 mg Tablet] Warfarin [Coumadin] 2.5 mg PO DAILY 07/22/18 07/22/18 Warfarin [Coumadin] 2.5 mg PO QOTHERDAY 07/22/18 07/22/18 Review of Systems - Physician Review All systems were reviewed & negative as marked: Yes - Review of Systems Constitutional: absent: Fevers Respiratory: absent: SOB, Cough Cardiovascular: absent: Chest Pain Gastrointestinal: Abdominal Pain, Hematochezia. absent: Nausea, Vomiting Neurological: Dizziness. absent: Headache Physical Exam - Physical Exam Narrative Physical Exam (Text): 07/22/18 16:22 Gen: VS reviewed, alert, pale, nontoxic, mild distress ENT: normal pharynx Eye: EOMI, PERRL Neck: no JVD, supple, no adenopathy CV: regular rate, regular rhythm, no rubs,no murmur, no gallops, S1, S2, pulses equal and strong Pulm: no distress, clear to auscultation, no wheeze, no rhonchi, breath sounds equal, no rales Abd: soft, mild left lower quadrant tenderness, no guarding, no rebound, no rigidity, normal bowel sounds Ext: no edema Skin: pale, no rash, no cyanosis Psych: responds appropriately to questions, normal affect Neuro: oriented x3, CN2-12 intact grossly, motor intact, sensation intact Vital Signs Reviewed: Yes Vital Signs Temp Pulse Resp BP Pulse Ox 07/22/18 15:44 98.0 F 54 L 16 111/49 L 100 07/22/18 15:04 98.8 F 52 L 22 137/67 98 Temperature: Afebrile Blood Pressure: Normal Pulse: Regular Respiratory Rate: Normal Appearance: Positive for: Well-Appearing, Non-Toxic, Comfortable Pain Distress: None Mental Status: Positive for: Alert and Oriented X 3 Medical Decision Making ED Course and Treatment: 07/22/18 15:54 Impression: 68 year old female presents to the Emergency Department complaining of bloody stool and abdominal pain. Differential Diagnosis included but are not limited to: GI bleed Plan: -- Labs -- CT of Abdomen/Pelvis -- EKG -- Protonix -- Reassess and disposition Prior Visits: Notes and results from previous visits were reviewed. Progress Notes: 07/22/18 17:[address] addison, patient to be admitted for GI bleed (melena), ongoing for 2 weeks, hx of duodenal ulcer. patient does not have hemodynamic compromise. case discussed with dr. knapp, would like stools cultures, recommends empiric tx with abx (ceftriaxone and flagyl). 07/22/18 18:39 pcn allergy noted, it was agreed with dr. knapp to start cipro instead of ceftriaxone - Critical Care Critical Care Minutes: Other (35 minutes, critical care for critical illness, [facility] medical decision making and coordination of care) - EKG Interpretation EKG Interpretation (Text): 07/22/18 17:41 1538: sinus kylie at 54 bpm, nml qrs, lvh with repol abn, no ectopy Interpreted by ED Physician: Yes - Medication Orders Current Medication Orders: Pantoprazole Sodium (Protonix 40mg Ivpb) 40 mg in 100 mls @ 20 mls/hr IVPB .Q5H ISABEL Last Admin: 07/22/18 16:12 Dose: 20 mls/hr eMAR Start Stop Document 07/22/18 16:12 EDUARDO (Rec: 07/22/18 16:12 EDUARDO [id number]) Intravenous Solution Start Date 07/22/18 Start Time 16:12 Pantoprazole Sodium (Protonix Inj) 80 mg IVP STAT STA Stop: 07/22/18 16:02 Last Admin: 07/22/18 16:11 Dose: 80 mg IVP Administration Document 07/22/18 16:11 EDUARDO (Rec: 07/22/18 16:12 EDUARDO [id number]) Charges for Administration # of IVP Administrations 1 - Scribe Statement The provider has reviewed the documentation as recorded by the Scribe David Krueger. All medical record entries made by the Julesibe were at my direction and personally dictated by me. I have reviewed the chart and agree that the record accurately reflects my personal performance of the history, physical exam, medical decision making, and the department course for this patient. I have also personally directed, reviewed, and agree with the discharge instructions and disposition. Disposition/Present on Arrival - Present on Arrival Any Indicators Present on Arrival: No History of DVT/PE: No History of Uncontrolled Diabetes: No Urinary Catheter: No History of Decub. Ulcer: No History Surgical Site Infection Following: None - Disposition Have Diagnosis and Disposition been Completed?: Yes Diagnosis: GI bleed Disposition: HOSPITALIZED Disposition Time: 17:28 Patient Plan: Admission Patient Problems: Current Active Problems Problem Status Onset GI bleed Acute Condition: STABLE Forms: [employer] (Slovenian)
[2018-07-22 16:24] LABS: ALB/GLOB RATIO 1.4 (1.1-1.8); ALBUMIN 4.7 g/dL (3.0-4.8); CALCIUM 9.5 mg/dL (8.4-10.5); INR 2.46; PARTIAL THROMBOPLASTIN TIME 39.3 Seconds (25.1-36.5); PROTHROMBIN TIME 28.6 SECONDS (9.4-12.5)
[2018-07-22 16:34] LABS: TROPONIN I 0.02 ng/mL
[2018-07-22] MEDS ORDERED: metroNIDAZOLE IV 500 mg/100 ml 500 MG/100 ML BAG IVPB STA (17:28)
[2018-07-22] MEDS ORDERED: Ciprofloxacin 400mg/200ml D5W 400 MG/200 ML BAG IVPB STA (17:42)
--- NOTE | 2018-07-22 18:34 | CP.PCM.CON ---
<Sonu Kafuman - Last Filed: 07/22/18 18:44> History of Present Illness - History of Present Illness History of Present Illness: PGY-4 GI Fellow Consult Note Pt is a 68 yo WF with h/o AVR (St.Asa Mech Valve), H/o Cardiac arrhythmia, Gout, Uterine CA, HTN, RA (on immunosuppression) presenting with complaint of abdominal pain and diarrhea. She states over the last several days to weeks she had had bilateral lower abdominal, crampy, severe, non-radiating pain associated with loose diarrhea that is often black in color. She denied any nausea/vomiting, recent antibiotics use. She states that she recently traveled to somewhere in [place] where she had seafood. Denies any other ppl with similar symptoms or any other known sick contacts. Denied any dysphagia, weight loss, hematochezia. 12 point ROS negative other than stated above MHx: See above SurgHx: AVR, EGD 04/23/17 with small stomach erosions and FCIII ulcers CSPY 04/23/17 with int hemorrhoids and sig looping Meds: reviewed in MAR FamHx: Denied GI history SocHx: Neg x 3 All: PCN Past Patient History - Infectious Disease Hx of Infectious Diseases: None - Past Social History Smoking Status: Never Smoked - CARDIAC Hx Cardiac Disorders: Yes Hx Peripheral Edema: Yes - PULMONARY Hx Respiratory Disorders: No Other/Comment: IMPLANTED HR MONITOR - NEUROLOGICAL Hx Neurological Disorder: Yes HX Cerebrovascular Accident: Yes Other/Comment: NEUROPATHY - HEENT Hx HEENT Problems: Yes (eyeglases) - RENAL Hx Chronic Kidney Disease: Yes Hx Renal Failure: Yes - ENDOCRINE/METABOLIC Hx Endocrine Disorders: Yes Hx Diabetes Mellitus Type 2: Yes - HEMATOLOGICAL/ONCOLOGICAL Hx Blood Disorders: Yes Hx Blood Transfusions: Yes - INTEGUMENTARY Other/Comment: multiple bruises to ble and left arm pt on coumadin, 4th toe b/l feet crosses over 5th toe 4th toe right foot has 0.2cm red round dry wound pt keeps small cusions around 4th toes for protection - MUSCULOSKELETAL/RHEUMATOLOGICAL Hx Musculoskeletal Disorders: Yes (rheumatoid arthritis) Hx Falls: No Hx Gout: Yes Hx Unsteady Gait: Yes (cane) - GASTROINTESTINAL Hx Gastrointestinal Disorders: Yes - GENITOURINARY/GYNECOLOGICAL Hx Genitourinary Disorders: Yes (fibrocystic breasts) - PSYCHIATRIC Hx Psychophysiologic Disorder: Yes Hx Depression: Yes Hx Substance Use: No - SURGICAL HISTORY Other/Comment: aortic valve replacement 1988, computer chip in left breast for heart monitoring done at [facility] - ANESTHESIA Hx Anesthesia Reactions: No Hx Malignant Hyperthermia: No Meds Allergies/Adverse Reactions: Allergies Allergy/AdvReac Type Severity Reaction Status Date / Time Penicillins Allergy RASH Verified 04/22/17 08:56 - Medications Medications: Current Medications Ciprofloxacin (Cipro 400mg/200ml Dsw) 400 mg in 200 mls @ 133.3 mls/hr IVPB STAT STA; Protocol Stop: 07/22/18 19:12 Pantoprazole Sodium (Protonix Inj) 40 mg IVP Q12 ISABEL Physical Exam - Constitutional Appears: Well, Non-toxic, No Acute Distress - Head Exam Head Exam: ATRAUMATIC, NORMAL INSPECTION - Eye Exam Eye Exam: EOMI. absent: Conjunctival injection, Scleral icterus - ENT Exam ENT Exam: Mucous Membranes Moist. absent: Mucous Membranes Dry, Normal External Ear Exam - Respiratory Exam Respiratory Exam: Clear to Auscultation Bilateral, NORMAL BREATHING PATTERN. absent: Accessory Muscle Use, Chest Wall Tenderness, Decreased Breath Sounds, Respiratory Distress, Stridor - Cardiovascular Exam Cardiovascular Exam: REGULAR RHYTHM, RRR - GI/Abdominal Exam GI & Abdominal Exam: Normal Bowel Sounds, Soft, Tenderness. absent: Bruit, Diminished Bowel Sounds, Distended, Firm, Guarding, Hernia, Organomegaly, Pulsatile Mass, Rebound, Rigid Additional comments: in bilateral lower quads without guarding - Rectal Exam Rectal Exam: Deferred - Extremities Exam Extremities exam: Positive for: normal inspection. Negative for: pedal edema - Neurological Exam Neurological exam: Alert, CN II-XII Intact, Oriented x3 - Psychiatric Exam Psychiatric exam: Normal Affect, Normal Mood - Skin Skin Exam: Normal Color, Warm Results - Vital Signs Recent Vital Signs: Last Vital Signs Temp 98.0 F 07/22/18 15:44 Pulse 54 L 07/22/18 15:44 Resp 16 07/22/18 15:44 BP 111/49 L 07/22/18 15:44 Pulse Ox 100 07/22/18 15:44 - Labs Result Diagrams: 07/22/18 16:00 07/22/18 16:00 Labs: Laboratory Results - last 24 hr 10/09/18 10/09/18 10/09/18 16:00 16:00 16:00 WBC 5.8 D RBC 3.66 Hgb 9.8 L Hct 30.7 L MCV 83.9 MCH 26.8 MCHC 31.9 RDW 15.6 H Plt Count 200 MPV 11.4 H Gran % 72.6 H Lymph % (Auto) 13.4 L [place] % (Auto) 10.9 H Eos % (Auto) 2.8 Baso % (Auto) 0.3 Gran # 4.18 Lymph # (Auto) 0.8 L [place] # (Auto) 0.6 Eos # (Auto) 0.2 Baso # (Auto) 0.02 PT 28.6 H INR 2.46 APTT 39.3 H Sodium 139 Potassium 4.8 Chloride 108 H Carbon Dioxide 17 L Anion Gap 19 BUN 89 H Creatinine 2.7 H Est GFR ( Amer) 21 Est GFR (Non-Af Amer) 17 Random Glucose 142 H Calcium 9.5 Magnesium 2.3 H Total Bilirubin 0.3 AST 41 H ALT 43 Alkaline Phosphatase 131 H Troponin I 0.02 D Total Protein 8.0 Albumin 4.7 Globulin 3.3 Albumin/Globulin Ratio 1.4 Blood Type Antibody Screen BBK History Checked 07/22/18 16:00 WBC RBC Hgb Hct MCV MCH MCHC RDW Plt Count MPV Gran % Lymph % (Auto) [place] % (Auto) Eos % (Auto) Baso % (Auto) Gran # Lymph # (Auto) [place] # (Auto) Eos # (Auto) Baso # (Auto) PT INR APTT Sodium Potassium Chloride Carbon Dioxide Anion Gap BUN Creatinine Est GFR ( Amer) Est GFR (Non-Af Amer) Random Glucose Calcium Magnesium Total Bilirubin AST ALT Alkaline Phosphatase Troponin I Total Protein Albumin Globulin Albumin/Globulin Ratio Blood Type A POSITIVE Antibody Screen Negative BBK History Checked Patient has bt Assessment & Plan - Assessment and Plan (Free Text) Assessment: 68 yo WF with h/o duodenal ulcers, RA on immunosuppression, AVR on warfarin presenting with abdominal pain and black diarrhea. # Abd Pain, Dark loose stools: The constellation of abd pain and diarrhea with possible dietary could point to infectious colitis as etiology as is higher risk given immunosuppression. Also at risk for upper GI bleed if what she is reporting is actually melena. Vitals stable and Hgb near baseline at this time. Plan: - CT Abd/Pelvis with PO contrast - Empiric Cipro+Metronidazole - Clear Liq Diet - Check Cdiff, Stool Cx, O&P, Blood Cx - Spportive care with IVF - PPI IV BID - Hold Warfarin for now Pt seen and examined with Dr. Knapp; see attestation for further recs/changes. <Jayson Knapp V - Last Filed: 07/23/18 22:49> Meds - Medications Medications: Current Medications Sodium Chloride (Sodium Chloride 0.9%) 1,000 mls @ 75 mls/hr IV .[id number] ISABEL Stop: 07/23/18 23:39 Last Admin: 07/23/18 10:51 Dose: 75 mls/hr Aztreonam (Azactam 1 Gm) 100 mls @ 100 mls/hr IVPB Q8 ISABEL; Protocol Stop: 07/30/18 16:46 Last Admin: 07/23/18 21:53 Dose: 100 mls/hr Metronidazole (Flagyl) 500 mg in 100 mls @ 100 mls/hr IVPB Q8 ISABEL; Protocol Last Admin: 07/23/18 21:53 Dose: 100 mls/hr Insulin Human Lispro (Humalog Low) 0 units SC ACHS ISABEL; Protocol Last Admin: 07/23/18 17:54 Dose: 1 u Loratadine (Claritin) 10 mg PO DAILY ISABEL Last Admin: 07/23/18 10:43 Dose: 10 mg Pantoprazole Sodium (Protonix Inj) 40 mg IVP Q12 ISABEL Last Admin: 07/23/18 21:54 Dose: 40 mg Results - Vital Signs Recent Vital Signs: Last Vital Signs Temp 98.7 F 07/23/18 17:34 Pulse 62 07/23/18 18:00 Resp 18 07/23/18 17:34 BP 117/52 L 07/23/18 17:34 Pulse Ox 97 07/23/18 05:40 - Labs Result Diagrams: 07/23/18 06:00 07/23/18 06:00 Labs: Laboratory Results - last 24 hr 07/22/18 07/23/18 07/23/18 21:27 06:00 06:00 WBC 3.9 L D RBC 3.29 L Hgb 8.9 L Hct 27.6 L MCV 83.9 MCH 27.1 MCHC 32.2 RDW 15.5 H Plt Count 145 MPV 11.9 H Sodium 140 Potassium 4.1 Chloride 111 H Carbon Dioxide 20 L Anion Gap 14 BUN 76 H Creatinine 2.3 H Est GFR ( Amer) 25 Est GFR (Non-Af Amer) 21 POC Glucose (mg/dL) 180 H Random Glucose 115 H Calcium 9.2 Phosphorus 4.5 Magnesium 2.2 Total Bilirubin 0.2 AST 40 H ALT 45 Alkaline Phosphatase 122 Total Protein 7.1 Albumin 4.0 Globulin 3.1 Albumin/Globulin Ratio 1.3 Free T4 TSH 3rd Generation 07/23/18 07/23/18 07/23/18 06:00 07:21 11:52 WBC RBC Hgb Hct MCV MCH MCHC RDW Plt Count MPV Sodium Potassium Chloride Carbon Dioxide Anion Gap BUN Creatinine Est GFR ( Amer) Est GFR (Non-Af Amer) POC Glucose (mg/dL) 134 H 172 H Random Glucose Calcium Phosphorus Magnesium Total Bilirubin AST ALT Alkaline Phosphatase Total Protein Albumin Globulin Albumin/Globulin Ratio Free T4 1.25 TSH 3rd Generation 0.05 L 07/23/18 07/23/18 16:20 21:15 WBC RBC Hgb Hct MCV MCH MCHC RDW Plt Count MPV Sodium Potassium Chloride Carbon Dioxide Anion Gap BUN Creatinine Est GFR ( Amer) Est GFR (Non-Af Amer) POC Glucose (mg/dL) 199 H 96 Random Glucose Calcium Phosphorus Magnesium Total Bilirubin AST ALT Alkaline Phosphatase Total Protein Albumin Globulin Albumin/Globulin Ratio Free T4 TSH 3rd Generation Attending/Attestation - Attestation I have personally seen and examined this patient.: Yes I have fully participated in the care of the patient.: Yes I have reviewed all pertinent clinical information: Yes Notes (Text): This is an addendum to GI consult report dictated by the GI Fellow.The patient was seen and examined earlier. Medical records, lab studies, imagings were reviewed. Last 24 hours events reviewed. Agreed with the above treatment plan as outlined in GI Fellow 's notes with the addition of the following Patient was traveling was in [place] when the diarrhea started Patient did have some seafood. To the event Intermittent episodes of abdominal pain and diarrhea noticed bleeding per rectum and also more pronounced abdominal craing On examination abdomen soft mild diffuse tenderness present Would recommend CT of the abdomen and pelvis with by mouth contrast Stool studies culture leukocytes and C. difficile Start empiric antibiotic coverage Patient is on anticoagulation will hold off coumadin Follow-up hemoglobin We start anticoagulation again 1 stable hct 07/23/18 22:48
--- NOTE | 2018-07-22 18:56 | CT ---
PROCEDURE: CT Abdomen and Pelvis without Oral or IV contrast. HISTORY: LLQ pain COMPARISON: None available. TECHNIQUE: Contiguous axial images of the abdomen and pelvis. No oral or IV contrast administered. Coronal and Sagittal reformats generated and reviewed. Radiation dose: Total exam DLP = 306.93 mGy-cm. This CT exam was performed using one or more of the following dose reduction techniques: Automated exposure control, adjustment of the mA and/or kV according to patient size, and/or use of iterative reconstruction technique. FINDINGS: There is limited evaluation of the solid organs without the administration of IV contrast. LOWER THORAX: 6 mm left lower lobe calcified granuloma. No visible pleural effusion or pneumothorax. Dense aortic valve calcifications LIVER: Hepatomegaly. Subtle mild nodular contour. GALLBLADDER AND BILE DUCTS: Contracted gallbladder limits evaluation. PANCREAS: Unremarkable unenhanced appearance. SPLEEN: Punctate splenic calcification, likely granuloma. ADRENALS: Unremarkable unenhanced appearance. KIDNEYS AND URETERS: No hydronephrosis or obstructing renal calculus. BLADDER: The urinary bladder appears unremarkable. REPRODUCTIVE: Uterus is absent, presumably due to hysterectomy. APPENDIX: The appendix appears within normal limits of caliber. No secondary signs of acute appendicitis. BOWEL: The stomach is nondistended. Lack of oral contrast limits evaluation for bowel pathology. The bowel loops appear within normal limits of caliber without evidence of intestinal obstruction. Diverticulosis without CT evidence of acute diverticulitis. PERITONEUM: No significant free fluid. No definite free air. LYMPH NODES: No bulky lymphadenopathy identified. VASCULATURE: Atherosclerotic calcifications of the aorta and branches. No aortic aneurysm. BONES: Degenerative changes. OTHER FINDINGS: Median sternotomy wires, partially imaged. IMPRESSION: Hepatomegaly. Subtle mild nodular contour. Diverticulosis without CT evidence of acute diverticulitis. Additional findings as above.
[2018-07-22] MEDS: Sodium Chloride 0.9% 1,000 ML IV SCH (21:22)
[2018-07-22 21:54] VITALS: BMI 27.1
--- NOTE | 2018-07-23 04:08 | CP.PCM.PN ---
Subjective - Date & Time of Evaluation Date of Evaluation: 07/23/18 Time of Evaluation: 03:00 - Subjective Subjective: Hakan Mayes, PGY-1 Progress Note for Hospitalist Service Resident was called by nurse due to conversion of patient's cardiac rhythm from sinus rhythm to atrial flutter. Patient also experienced two episodes of sinus pauses of 4.2 s and 4.5 s, although patient denied chest pain, dizziness, palpitations, headaches, nausea at the time. Patient had aortic valve replacement in 1988 and has an implanted chip placed at [facility] as a heart monitor. No CHADSVASC or HASBLED score is necessary at this time as patient is anticoagulated on warfarin and is currently therapeutic with an INR of 2.46. Regarding sinus pauses, EKG was ordered, along with morning labs, Mg, Phos, TSH and T4 to rule out electrolyte abnormalities and medication side effect. Not currently on any beta blockers. Patient hemodynamically stable BP 139/52, HR 62, afebrile and 97% on RA. EKG showed QTc of 413. Call will be made to Dr. Cantrell regarding choice of cardiology subspecialist. Patient seen, case reviewed, and plan discussed with Dr. Gao. Objective - Vital Signs/Intake and Output Vital Signs (last 24 hours): Temp Pulse Resp BP Pulse Ox 97.7 F 65 19 139/52 L 99 07/22/18 23:00 07/23/18 01:53 07/22/18 23:00 07/22/18 23:00 07/22/18 23:00 - Medications Medications: Current Medications Sodium Chloride (Sodium Chloride 0.9%) 1,000 mls @ 75 mls/hr IV .[id number] ISABEL Stop: 07/23/18 23:39 Last Admin: 07/22/18 21:22 Dose: 75 mls/hr Levothyroxine Sodium (Synthroid) 175 mcg PO ACB ISABEL Mirtazapine (Remeron) 30 mg PO HS ISABEL Last Admin: 07/22/18 21:22 Dose: 30 mg Pantoprazole Sodium (Protonix Inj) 40 mg IVP Q12 ISABEL Last Admin: 07/22/18 21:22 Dose: 40 mg - Labs Labs: 07/22/18 16:00 07/22/18 16:00 PT 28.6 SECONDS (9.4-12.5) H 07/22/18 16:00 INR 2.46 07/22/18 16:00 APTT 39.3 Seconds (25.1-36.5) H 07/22/18 16:00
[2018-07-23 06:24] LABS: HEMOGLOBIN 8.9 g/dL (12.0-16.0); MEAN CELL VOLUME 83.9 fl (80.0-105.0); MEAN CORPUSCULAR HEMOGLOBIN 27.1 pg (25.0-35.0); MEAN CORPUSCULAR HGB CONC 32.2 g/dl (31.0-37.0); MEAN PLATELET VOLUME 11.9 fl (7.0-11.0); RBC 3.29 10^6/uL (3.5-6.1); RED CELL DISTRIBUTION WIDTH 15.5 % (11.5-14.5); WHITE BLOOD COUNT 3.9 10^3/ul (4.5-11.0)
--- NOTE | 2018-07-23 06:28 | CP.PCM.HP ---
<Felicia Sears - Last Filed: 07/23/18 10:02> History of Present Illness - History of Present Illness History of Present Illness: H&P for Jacobo Interiano PGY3 This is a 68yo female with past medical history of HTN, gout, mechanical AV valve ([facility]), a.fib (on Coumadin), RA, Uterine ca s/p hysterectomy no chemo/rad, DM-II, depression, hypothyroidism, iron deficiency anemia who was sent in by PMD for abdominal pain, diarrhea and dark stool. Patient reports she has been having dark stool for 2 weeks. She does take iron at home, but also has been having lower abdominal cramps that do not radiate. She has diarrhea that is dark in color. She had hemoccult done by PMD which patient said was positive. She has history of GI bleed before secondary to stomach ulcers which she was treated for last year. Patient states she recently went to [place] where she had seafood but denies feeling any nausea/vomiting, sick contacts or anyone else with similar symptoms. She denies chest pain, shortness of breath, weight loss, dizziness, weakness, fever/chills, nausea/vomiting, numbness or tingling. Her last EGD/Colonoscopy was in 04/2017. EGD showed small stomach erosions and forest class III ulcers. Colonoscopy showed internal hermorrhoids. 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), a.fib (on Coumadin), RA, Uterine ca s/p hysterectomy no chemo/rad, DM-II, depression, hypothyroidism, iron deficiency anemia Past surgical history: Mechanical AV Valve, Hysterectomy Home meds: Reviewed as per MAR Allergies: PCN Social history: Denies EtOH, drug or tobacco use. Lives alone. Independent in all ADLs Family history: Mom: cervical ca, Dad: lung ca PMD: Dr. Fernandez Present on Admission - Present on Admission Any Indicators Present on Admission: No Review of Systems - Review of Systems All systems: reviewed and no additional remarkable complaints except Review of Systems: 12 point ROS reviewed as per HPI Past Patient History - Infectious Disease Hx of Infectious Diseases: None - Past Social History Smoking Status: Never Smoked - CARDIAC Hx Cardiac Disorders: Yes Hx Peripheral Edema: Yes Other/Comment: AVR - PULMONARY Hx Respiratory Disorders: No Other/Comment: IMPLANTED HR MONITOR - NEUROLOGICAL Hx Neurological Disorder: Yes HX Cerebrovascular Accident: Yes - HEENT Hx HEENT Problems: Yes (eyeglases) - RENAL Hx Chronic Kidney Disease: Yes Hx Renal Failure: Yes - ENDOCRINE/METABOLIC Hx Endocrine Disorders: Yes Hx Diabetes Mellitus Type 2: Yes - HEMATOLOGICAL/ONCOLOGICAL Hx Blood Disorders: Yes Hx Blood Transfusions: Yes - INTEGUMENTARY Other/Comment: multiple bruises to ble and left arm pt on coumadin, 4th toe b/l feet crosses over 5th toe 4th toe right foot has 0.2cm red round dry wound pt keeps small cusions around 4th toes for protection - MUSCULOSKELETAL/RHEUMATOLOGICAL Hx Musculoskeletal Disorders: Yes Hx Arthritis: Yes Hx Falls: No - GASTROINTESTINAL Hx Gastrointestinal Disorders: Yes - GENITOURINARY/GYNECOLOGICAL Hx Genitourinary Disorders: Yes (fibrocystic breasts) - PSYCHIATRIC Hx Substance Use: No - SURGICAL HISTORY Other/Comment: aortic valve replacement 1988, computer chip in left breast for heart monitoring done at [facility] rhythm [facility] - ANESTHESIA Hx Anesthesia Reactions: No Hx Malignant Hyperthermia: No Meds Allergies/Adverse Reactions: Allergies Allergy/AdvReac Type Severity Reaction Status Date / Time Penicillins Allergy RASH Verified 04/22/17 08:56 Physical Exam - Constitutional Appears: No Acute Distress - Head Exam Head Exam: ATRAUMATIC, NORMAL INSPECTION, NORMOCEPHALIC - Eye Exam Eye Exam: Normal appearance, PERRL Pupil Exam: NORMAL ACCOMODATION, PERRL - ENT Exam ENT Exam: Mucous Membranes Dry - Neck Exam Neck exam: Positive for: Normal Inspection - Respiratory Exam Respiratory Exam: Clear to Auscultation Bilateral, NORMAL BREATHING PATTERN. absent: Rales, Rhonchi, Wheezes - Cardiovascular Exam Cardiovascular Exam: Irregular Rhythm, +S1, +S2, Systolic Murmur. absent: Tachycardia, Gallop, Rubs - GI/Abdominal Exam GI & Abdominal Exam: Normal Bowel Sounds, Soft, Tenderness (LLQ ). absent: Distended, Firm, Guarding, Mass, Rebound, Rigid - Rectal Exam Rectal Exam: Deferred Additional comments: Patient refused - Extremities Exam Extremities exam: Positive for: normal capillary refill, normal inspection, pedal pulses present. Negative for: calf tenderness, pedal edema - Neurological Exam Neurological exam: Alert, CN II-XII Intact, Oriented x3 - Psychiatric Exam Psychiatric exam: Normal Affect, Normal Mood - Skin Skin Exam: Dry, Intact, Warm Results - Vital Signs Recent Vital Signs: Last Vital Signs Temp 97.9 F 07/23/18 05:40 Pulse 82 07/23/18 05:40 Resp 20 07/23/18 05:40 BP 121/60 07/23/18 05:40 Pulse Ox 97 07/23/18 05:40 - Labs Result Diagrams: 07/23/18 06:00 07/23/18 06:00 Labs: Laboratory Results - last 24 hr 07/22/18 07/22/18 07/22/18 16:00 16:00 16:00 WBC 5.8 D RBC 3.66 Hgb 9.8 L Hct 30.7 L MCV 83.9 MCH 26.8 MCHC 31.9 RDW 15.6 H Plt Count 200 MPV 11.4 H Gran % 72.6 H Lymph % (Auto) 13.4 L [place] % (Auto) 10.9 H Eos % (Auto) 2.8 Baso % (Auto) 0.3 Gran # 4.18 Lymph # (Auto) 0.8 L [place] # (Auto) 0.6 Eos # (Auto) 0.2 Baso # (Auto) 0.02 PT 28.6 H INR 2.46 APTT 39.3 H Sodium 139 Potassium 4.8 Chloride 108 H Carbon Dioxide 17 L Anion Gap 19 BUN 89 H Creatinine 2.7 H Est GFR ( Amer) 21 Est GFR (Non-Af Amer) 17 POC Glucose (mg/dL) Random Glucose 142 H Calcium 9.5 Magnesium 2.3 H Total Bilirubin 0.3 AST 41 H ALT 43 Alkaline Phosphatase 131 H Troponin I 0.02 D Total Protein 8.0 Albumin 4.7 Globulin 3.3 Albumin/Globulin Ratio 1.4 Blood Type Antibody Screen BBK History Checked 07/22/18 07/22/18 16:00 21:27 WBC RBC Hgb Hct MCV MCH MCHC RDW Plt Count MPV Gran % Lymph % (Auto) [place] % (Auto) Eos % (Auto) Baso % (Auto) Gran # Lymph # (Auto) [place] # (Auto) Eos # (Auto) Baso # (Auto) PT INR APTT Sodium Potassium Chloride Carbon Dioxide Anion Gap BUN Creatinine Est GFR ( Amer) Est GFR (Non-Af Amer) POC Glucose (mg/dL) 180 H Random Glucose Calcium Magnesium Total Bilirubin AST ALT Alkaline Phosphatase Troponin I Total Protein Albumin Globulin Albumin/Globulin Ratio Blood Type A POSITIVE Antibody Screen Negative BBK History Checked Patient has bt Assessment & Plan - Assessment and Plan (Free Text) Assessment: 1. Abdominal pain - rule out GI bleed v. colitis 2. A.fib with pauses - On Coumadin at home 3. Iron deficiency anemia - Acute on chronic 4. HENRRY - most likely pre-renal from dehydration and diarrhea 5. HTN 6. HLD 7. Mechanical valve 8. DM-II 9. RA 10. Hypothyroidism 11. Depression 12. Gout Plan: Labs and imaging reviewed. CT A/P did not show evidence of colitis. GI is on consult. Coumadin is on hold. Will monitor Hgb. Patient is on protonix and IV fluids. She is tolerating clear liquid diet. Cardiology consulted for a.fib with pauses. She is on ISS for DM. Will hold medications for RA, gout and HLD for now. Hold LEONELA/ARB and diuretics for HENRRY. ID on consult. TSH is low. Will hold synthroid for now. Case seen, discussed and reviewed with Dr. Tamia Sears PGY3 - Date & Time Date: 07/23/18 Time: 10:03 <Luiz Cantrell S - Last Filed: 07/24/18 16:53> Results - Vital Signs Recent Vital Signs: Last Vital Signs Temp 98.7 F 07/24/18 16:20 Pulse 60 07/24/18 16:20 Resp 14 07/24/18 16:20 BP 142/53 L 07/24/18 16:20 Pulse Ox 98 07/24/18 06:00 - Labs Result Diagrams: 07/24/18 05:45 07/24/18 05:45 Labs: Laboratory Results - last 24 hr 07/22/18 07/23/18 07/24/18 16:00 21:15 05:45 WBC 3.4 L RBC 3.03 L Hgb 8.0 L Hct 25.6 L MCV 84.5 MCH 26.4 MCHC 31.3 RDW 15.7 H Plt Count 132 MPV 11.9 H PT INR Sodium Potassium Chloride Carbon Dioxide Anion Gap BUN Creatinine Est GFR ( Amer) Est GFR (Non-Af Amer) POC Glucose (mg/dL) 96 Random Glucose Calcium Iron TIBC % Saturation Ferritin Total Bilirubin AST ALT Alkaline Phosphatase Total Protein Albumin Globulin Albumin/Globulin Ratio Stool Occult Blood Blood Type A POSITIVE Antibody Screen Negative Crossmatch See Detail BBK History Checked Patient has bt 07/24/18 07/24/18 07/24/18 05:45 05:45 06:30 WBC RBC Hgb Hct MCV MCH MCHC RDW Plt Count MPV PT 34.7 H INR 2.95 Sodium 141 Potassium 4.3 Chloride 115 H Carbon Dioxide 19 L Anion Gap 11 BUN 42 H Creatinine 1.7 H Est GFR ( Amer) 36 Est GFR (Non-Af Amer) 30 POC Glucose (mg/dL) Random Glucose 116 H Calcium 9.1 Iron TIBC % Saturation Ferritin Total Bilirubin 0.2 AST 33 ALT 38 Alkaline Phosphatase 106 Total Protein 6.4 Albumin 3.6 Globulin 2.8 Albumin/Globulin Ratio 1.3 Stool Occult Blood Negative Blood Type Antibody Screen Crossmatch BBK History Checked 07/24/18 07/24/18 07/24/18 07:41 08:00 08:00 WBC RBC Hgb Hct MCV MCH MCHC RDW Plt Count MPV PT INR Sodium Potassium Chloride Carbon Dioxide Anion Gap BUN Creatinine Est GFR ( Amer) Est GFR (Non-Af Amer) POC Glucose (mg/dL) 113 H Random Glucose Calcium Iron 65 TIBC 438 % Saturation 15 L Ferritin 14.1 Total Bilirubin AST ALT Alkaline Phosphatase Total Protein Albumin Globulin Albumin/Globulin Ratio Stool Occult Blood Blood Type Antibody Screen Crossmatch BBK History Checked 07/24/18 07/24/18 11:20 16:34 WBC RBC Hgb Hct MCV MCH MCHC RDW Plt Count MPV PT INR Sodium Potassium Chloride Carbon Dioxide Anion Gap BUN Creatinine Est GFR ( Amer) Est GFR (Non-Af Amer) POC Glucose (mg/dL) 148 H 166 H Random Glucose Calcium Iron TIBC % Saturation Ferritin Total Bilirubin AST ALT Alkaline Phosphatase Total Protein Albumin Globulin Albumin/Globulin Ratio Stool Occult Blood Blood Type Antibody Screen Crossmatch BBK History Checked Assessment & Plan - Assessment and Plan (Free Text) Plan: Pt seen and examined. This is a late entry.I have reviewed the note of the medical transcription radiology and agree with it. I have discussed the assessment and plan with the resident. I have reviewed the patient's labs and medications. Pt has abd pain and diarrhea. She is having a GI bleed and is on anticoagulation with coumadin. The Coumadin has been placed on hold. She has a hx of having a loop recorder due to a fib and pauses from ALU. She has HENRRY and will be placed on IVF. Synthroid will be held due to low TSH. Will hold her gout and RA meds as this may cause diarrhea.Consult cardiology, GI and ID.
--- NOTE | 2018-07-23 06:31 | CARD ---
APPROVED REPORT Date of service: 07/22/2018 EKG Measurement Heart [id number] <Conclusion> Sinus bradycardia Left ventricular hypertrophy with repolarization abnormality Abnormal ECG
[2018-07-23 06:53] LABS: ALB/GLOB RATIO 1.3 (1.1-1.8); CALCIUM 9.2 mg/dL (8.4-10.5)
[2018-07-23 07:05] LABS: FREE T4 1.25 ng/dL (0.78-2.19)
[2018-07-23] MEDS ORDERED: Levothyroxine 175 MCG TAB PO SCH (07:30)
[2018-07-23] MEDS ORDERED: AZILSARTAN PO SCH ×2 (10:00)
[2018-07-23] MEDS ORDERED: CHLORTHALIDONE PO SCH ×2 (10:00)
[2018-07-23] MEDS ORDERED: Non Formulary Medication (Omega-3-Acid Ethyl Esters [Omega 3] 500 MG) PO SCH ×2 (10:00)
[2018-07-23] MEDS ORDERED: [UNRECOGNIZED DRUG - OTHER] PO SCH ×2 (10:00)
[2018-07-23] MEDS ORDERED: Non Formulary Medication (Cetirizine Hcl [Zyrtec] 10 MG) PO SCH (10:00)
--- NOTE | 2018-07-23 10:33 | CARD ---
APPROVED REPORT Date of service: 07/23/2018 EKG Measurement Heart [id number] <Conclusion> Atrial fibrillation ST & T wave abnormality, consider inferolateral ischemia or digitalis effect Abnormal ECG
[2018-07-23] MEDS: Sodium Chloride 0.9% 1,000 ML IV SCH (10:51)
[2018-07-23] MEDS: Insulin Lispro (humaLOG) LOW Coverage SC SCH ×3 (13:02→22:00)
--- NOTE | 2018-07-23 13:45 | CP.PCM.PN ---
<Sonu Kaufman - Last Filed: 07/23/18 18:23> Subjective - Date & Time of Evaluation Date of Evaluation: 07/23/18 Time of Evaluation: 11:00 - Subjective Subjective: PGY-4 GI Fellow Prog Note Pt lying in bed when seen this AM. States still with crampy lower quad pain and reported 3 black loose BMs. Declined PO contrast for CT yesterday. 5 point ROS negative other than stated above Objective - Vital Signs/Intake and Output Vital Signs (last 24 hours): Temp Pulse Resp BP Pulse Ox 98 F 58 L 18 122/52 L 97 07/23/18 12:00 07/23/18 12:00 07/23/18 12:00 07/23/18 12:00 07/23/18 05:40 Intake and Output: 07/23/18 07/23/18 06:59 18:59 Intake Total 1020 Output Total 0 Balance 1020 - Medications Medications: Current Medications Sodium Chloride (Sodium Chloride 0.9%) 1,000 mls @ 75 mls/hr IV .[id number] ISABEL Stop: 07/23/18 23:39 Last Admin: 07/23/18 10:51 Dose: 75 mls/hr Insulin Human Lispro (Humalog Low) 0 units SC ACHS ISABEL; Protocol Last Admin: 07/23/18 13:02 Dose: 1 tube Loratadine (Claritin) 10 mg PO DAILY [facility] Last Admin: 07/23/18 10:43 Dose: 10 mg Pantoprazole Sodium (Protonix Inj) 40 mg IVP Q12 ISABEL Last Admin: 07/23/18 10:44 Dose: 40 mg - Labs Labs: 07/23/18 06:00 07/23/18 06:00 PT 28.6 SECONDS (9.4-12.5) H 07/22/18 16:00 INR 2.46 07/22/18 16:00 APTT 39.3 Seconds (25.1-36.5) H 07/22/18 16:00 - Constitutional Appears: Non-toxic, No Acute Distress - Head Exam Head Exam: ATRAUMATIC, NORMAL INSPECTION - Eye Exam Eye Exam: EOMI. absent: Conjunctival injection, Scleral icterus - ENT Exam ENT Exam: Mucous Membranes Moist, Normal External Ear Exam. absent: Mucous Membranes Dry - Respiratory Exam Respiratory Exam: NORMAL BREATHING PATTERN. absent: Accessory Muscle Use, Respiratory Distress - Cardiovascular Exam Cardiovascular Exam: REGULAR RHYTHM, RRR - GI/Abdominal Exam GI & Abdominal Exam: Soft, Tenderness (w/o guarding in bilateral lower quads), Normal Bowel Sounds. absent: Bruit, Distended, Firm, Guarding, Rigid, Mass, Organomegaly, Pulsatile Mass, Rebound Assessment and Plan - Assessment and Plan (Free Text) Assessment: 68 yo WF with h/o duodenal ulcers, RA on immunosuppression, AVR on warfarin presenting with abdominal pain and black diarrhea. # Abd Pain, Dark loose stools: The constellation of abd pain and diarrhea with possible dietary could point to infectious colitis as etiology as is higher risk given immunosuppression. Also at risk for upper GI bleed if what she is reporting is actually melena. Vitals stable and Hgb near baseline at this time. CT without clear explanation for symptoms as limited due to no PO contrast. # Diverticulosis: Seen on CT but no signs of -itis. # AVR replacement: On warfarin. Mechanical valve. Plan: - Empiric Cipro+Metronidazole - Clear Liq Diet - Check Cdiff, Stool Cx, O&P, Blood Cx - Spportive care with IVF - PPI IV BID - Hold Warfarin for now, but will consider starting low dose heparin tomorrow AM - Consider EGD+CSPY on Saturday pending course Pt seen and examined with Dr. Knapp; see attestation for further recs/changes. <Jayson Knapp V - Last Filed: 07/23/18 23:21> Objective - Vital Signs/Intake and Output Vital Signs (last 24 hours): Temp Pulse Resp BP Pulse Ox 98.7 F 62 18 117/52 L 97 07/23/18 17:34 07/23/18 18:00 07/23/18 17:34 07/23/18 17:34 07/23/18 05:40 Intake and Output: 07/23/18 07/24/18 18:59 06:59 Intake Total 1550 Balance 1550 - Medications Medications: Current Medications Sodium Chloride (Sodium Chloride 0.9%) 1,000 mls @ 75 mls/hr IV .[id number] ISABEL Stop: 07/23/18 23:39 Last Admin: 07/23/18 10:51 Dose: 75 mls/hr Aztreonam (Azactam 1 Gm) 100 mls @ 100 mls/hr IVPB Q8 ISABEL; Protocol Stop: 07/30/18 16:46 Last Admin: 07/23/18 21:53 Dose: 100 mls/hr Metronidazole (Flagyl) 500 mg in 100 mls @ 100 mls/hr IVPB Q8 ISABEL; Protocol Last Admin: 07/23/18 21:53 Dose: 100 mls/hr Insulin Human Lispro (Humalog Low) 0 units SC ACHS ISABEL; Protocol Last Admin: 07/23/18 17:54 Dose: 1 u Loratadine (Claritin) 10 mg PO DAILY [facility] Last Admin: 07/23/18 10:43 Dose: 10 mg Pantoprazole Sodium (Protonix Inj) 40 mg IVP Q12 ISABEL Last Admin: 07/23/18 21:54 Dose: 40 mg - Labs Labs: 07/23/18 06:00 07/23/18 06:00 PT 28.6 SECONDS (9.4-12.5) H 07/22/18 16:00 INR 2.46 07/22/18 16:00 APTT 39.3 Seconds (25.1-36.5) H 07/22/18 16:00 Attending/Attestation - Attestation I have personally seen and examined this patient.: Yes I have fully participated in the care of the patient.: Yes I have reviewed all pertinent clinical information, including history, physical exam and plan: Yes Notes (Text): This is an addendum to GI progress report dictated by the GI Fellow.The patient was seen and examined earlier. Medical records, lab studies, imagings were reviewed. Last 24 hours events reviewed. Agreed with the above treatment plan as outlined in GI Fellow 's notes with the addition of the following Patient feels better Still has episodes of loose bowl movements Only minimal bleeding Initially on cipro and flagyl Now cipro has been changed to levaquin Patient has prosthetic aortic valve May need to start anti-coagulation Will discuss with Dr. Cantrell and infusion rn IV heparin and keep low therapeutic range Close followup of hb If hb drops would need to consider repeat endoscopic evaluation Clinically the present episode is suggestive of acute enterocolitis CT scan was a limited study without oral or IV contrast 07/23/18 23:15
--- NOTE | 2018-07-23 16:44 | CP.PCM.CON ---
History of Present Illness - History of Present Illness History of Present Illness: 68 year old female with PMH of HTN, gout, S/P mechanical AV valve replacement, atrial fibrillation, rheumatoid arthritis, uterine cancer S/P hysterectomy, DM, hypothyroidism, chronic anemia came in to [facility] complaining of dark stools and some abdominal cramps and pain, not related to food intake. She denies eating foods out of the ordinary, no fever or chills, no nausea or vomiting, no chest pain, no SOB, no headache or dizziness, no cough or colds. She is complaining of loose bowel movement as well for the past 2 weeks, off and on. Infectious Diseases consult is requested to further evaluate and manage. Review of Systems - Review of Systems All systems: reviewed and no additional remarkable complaints except (as per HPI) Past Patient History - Infectious Disease Hx of Infectious Diseases: None - Past Social History Smoking Status: Never Smoked - CARDIAC Hx Cardiac Disorders: Yes Hx Peripheral Edema: Yes Other/Comment: AVR - PULMONARY Hx Respiratory Disorders: No Other/Comment: IMPLANTED HR MONITOR - NEUROLOGICAL Hx Neurological Disorder: Yes HX Cerebrovascular Accident: Yes - HEENT Hx HEENT Problems: Yes (eyeglases) - RENAL Hx Chronic Kidney Disease: Yes Hx Renal Failure: Yes - ENDOCRINE/METABOLIC Hx Endocrine Disorders: Yes Hx Diabetes Mellitus Type 2: Yes - HEMATOLOGICAL/ONCOLOGICAL Hx Blood Disorders: Yes Hx Blood Transfusions: Yes - INTEGUMENTARY Other/Comment: multiple bruises to ble and left arm pt on coumadin, 4th toe b/l feet crosses over 5th toe 4th toe right foot has 0.2cm red round dry wound pt keeps small cusions around 4th toes for protection - MUSCULOSKELETAL/RHEUMATOLOGICAL Hx Musculoskeletal Disorders: Yes Hx Arthritis: Yes Hx Falls: No - GASTROINTESTINAL Hx Gastrointestinal Disorders: Yes - GENITOURINARY/GYNECOLOGICAL Hx Genitourinary Disorders: Yes (fibrocystic breasts) - PSYCHIATRIC Hx Substance Use: No - SURGICAL HISTORY Other/Comment: aortic valve replacement 1988, computer chip in left breast for heart monitoring done at [facility] - ANESTHESIA Hx Anesthesia Reactions: No Hx Malignant Hyperthermia: No Meds Allergies/Adverse Reactions: Allergies Allergy/AdvReac Type Severity Reaction Status Date / Time Penicillins Allergy RASH Verified 04/22/17 08:56 - Medications Medications: Current Medications Sodium Chloride (Sodium Chloride 0.9%) 1,000 mls @ 75 mls/hr IV .[id number] ISABEL Stop: 07/23/18 23:39 Last Admin: 07/22/18 21:22 Dose: 75 mls/hr Insulin Human Lispro (Humalog Low) 0 units SC ACHS [facility]; Protocol Loratadine (Claritin) 10 mg PO DAILY [facility] Pantoprazole Sodium (Protonix Inj) 40 mg IVP Q12 [facility] Last Admin: 07/22/18 21:22 Dose: 40 mg Physical Exam - Constitutional Appears: No Acute Distress, Chronically Ill - Head Exam Head Exam: NORMAL INSPECTION - Respiratory Exam Respiratory Exam: Decreased Breath Sounds - Cardiovascular Exam Cardiovascular Exam: +S1, +S2 - GI/Abdominal Exam GI & Abdominal Exam: Soft. absent: Tenderness Results - Vital Signs Recent Vital Signs: Last Vital Signs Temp 97.9 F 07/23/18 05:40 Pulse 82 07/23/18 05:40 Resp 20 07/23/18 05:40 BP 121/60 07/23/18 05:40 Pulse Ox 97 07/23/18 05:40 - Labs Result Diagrams: 07/23/18 06:00 07/23/18 06:00 Labs: Laboratory Results - last 24 hr 07/22/18 07/22/18 07/22/18 16:00 16:00 16:00 WBC 5.8 D RBC 3.66 Hgb 9.8 L Hct 30.7 L MCV 83.9 MCH 26.8 MCHC 31.9 RDW 15.6 H Plt Count 200 MPV 11.4 H Gran % 72.6 H Lymph % (Auto) 13.4 L [place] % (Auto) 10.9 H Eos % (Auto) 2.8 Baso % (Auto) 0.3 Gran # 4.18 Lymph # (Auto) 0.8 L [place] # (Auto) 0.6 Eos # (Auto) 0.2 Baso # (Auto) 0.02 PT 28.6 H INR 2.46 APTT 39.3 H Sodium 139 Potassium 4.8 Chloride 108 H Carbon Dioxide 17 L Anion Gap 19 BUN 89 H Creatinine 2.7 H Est GFR ( Amer) 21 Est GFR (Non-Af Amer) 17 POC Glucose (mg/dL) Random Glucose 142 H Calcium 9.5 Phosphorus Magnesium 2.3 H Total Bilirubin 0.3 AST 41 H ALT 43 Alkaline Phosphatase 131 H Troponin I 0.02 D Total Protein 8.0 Albumin 4.7 Globulin 3.3 Albumin/Globulin Ratio 1.4 Free T4 TSH 3rd Generation Blood Type Antibody Screen BBK History Checked 07/22/18 07/22/18 07/23/18 16:00 21:27 06:00 WBC 3.9 L D RBC 3.29 L Hgb 8.9 L Hct 27.6 L MCV 83.9 MCH 27.1 MCHC 32.2 RDW 15.5 H Plt Count 145 MPV 11.9 H Gran % Lymph % (Auto) [place] % (Auto) Eos % (Auto) Baso % (Auto) Gran # Lymph # (Auto) [place] # (Auto) Eos # (Auto) Baso # (Auto) PT INR APTT Sodium Potassium Chloride Carbon Dioxide Anion Gap BUN Creatinine Est GFR ( Amer) Est GFR (Non-Af Amer) POC Glucose (mg/dL) 180 H Random Glucose Calcium Phosphorus Magnesium Total Bilirubin AST ALT Alkaline Phosphatase Troponin I Total Protein Albumin Globulin Albumin/Globulin Ratio Free T4 TSH 3rd Generation Blood Type A POSITIVE Antibody Screen Negative BBK History Checked Patient has bt 07/23/18 07/23/18 07/23/18 06:00 06:00 07:21 WBC RBC Hgb Hct MCV MCH MCHC RDW Plt Count MPV Gran % Lymph % (Auto) [place] % (Auto) Eos % (Auto) Baso % (Auto) Gran # Lymph # (Auto) [place] # (Auto) Eos # (Auto) Baso # (Auto) PT INR APTT Sodium 140 Potassium 4.1 Chloride 111 H Carbon Dioxide 20 L Anion Gap 14 BUN 76 H Creatinine 2.3 H Est GFR ( Amer) 25 Est GFR (Non-Af Amer) 21 POC Glucose (mg/dL) 134 H Random Glucose 115 H Calcium 9.2 Phosphorus 4.5 Magnesium 2.2 Total Bilirubin 0.2 AST 40 H ALT 45 Alkaline Phosphatase 122 Troponin I Total Protein 7.1 Albumin 4.0 Globulin 3.1 Albumin/Globulin Ratio 1.3 Free T4 1.25 TSH 3rd Generation 0.05 L Blood Type Antibody Screen BBK History Checked Assessment & Plan - Assessment and Plan (Free Text) Plan: Assessment R/O colitis in this patient with dark stools, loose bowel movement HTN gout S/P mechanical AV valve replacement atrial fibrillation rheumatoid arthritis uterine cancer S/P hysterectomy DM hypothyroidism chronic anemia Plan Started the patient on Azactam and Flagyl pending blood cx, stool cx, fecal leukocytes, stool for O and P, stool for C. diff. follow up further recommendations of GI reviewed CT A/P which showed diverticulosis will monitor clinically
[2018-07-23] MEDS: metroNIDAZOLE IV 500 mg/100 ml 500 MG/100 ML BAG IVPB SCH ×2 (17:53→21:53)
[2018-07-23] MEDS: Aztreonam 1 Gm in NS 100mL 100 ML IVPB SCH ×2 (19:14→21:53)
--- NOTE | 2018-07-23 22:25 | CON ---
DATE: 07/23/2018 REQUESTING PHYSICIAN: Luiz Cantrell MD REASON FOR CONSULTATION: Aortic valve disease and sinus pauses. HISTORY OF PRESENT ILLNESS: This is a is 68-year-old woman with a fairly complex past medical history including aortic valve disease, for which she went underwent aortic valve replacement with St. Asa mechanical valve in 1988 who was admitted with abdominal pain, diarrhea and melanotic stool. She has been followed by Dr. Alec Cristina in [facility]. She has a history of prior unexplained syncope for which she had a implantable loop recorder placed. In speaking with Dr. Marie he had no evidence of documentation of prior atrial fibrillation. She has had frequent nocturnal sinus pauses documented unassociated with any symptoms of lightheadedness or syncope. Conservative management has continued and she has a pacemaker placed. PAST MEDICAL HISTORY: Notable for rheumatoid arthritis, hypertension, gout, prior hysterectomy for uterine cancer, history of diabetes, hypothyroidism, depression and iron-deficiency anemia. Her last GI evaluation was performed over a year ago at which time she was found to have internal hemorrhoids, superficial gastric erosions and small ulcers. On telemetry monitoring, she has been noted to have paroxysmal atrial fibrillation and flutter as well as sinus pauses up to 5.2 seconds. CURRENT MEDICATIONS: Include insulin coverage, Protonix, and Synthroid. Her warfarin is on hold at the present time. SOCIAL HISTORY: She does not smoke or drink. FAMILY HISTORY: Father from lung cancer. Mother from cervical cancer. ALLERGIES: PENICILLIN. REVIEW OF SYSTEMS: A 10-point review of systems is notable for mainly problems mentioned above. PHYSICAL EXAMINATION: GENERAL: She is a middle-aged woman who appears comfortable at rest. VITAL SIGNS: Her blood pressure is 120/60 with a pulse of 80 in atrial fibrillation, respirations are 16. She is afebrile. Her monitor strips reveals paroxysmal atrial flutter, atrial fibrillation, sinus rhythm and sinus pauses. Telemetry monitoring reveals what I mentioned as well as sinus rhythm, marked sinus pauses of up to 5.2 seconds all of which occurred in the automated equipment engineer technician hours. HEENT: Normocephalic, atraumatic. NECK: Supple. No JVD noted. CHEST: Clear to auscultation and percussion. HEART: Prosthetic valve sounds heard with systolic murmur at left sternal border. ABDOMEN: Soft, mild diffuse tenderness with normoactive bowel sounds. EXTREMITIES: No edema. SKIN: Warm and dry. PSYCHIATRIC: Normal mood and affect. NEUROLOGIC: Alert and oriented x3. No gross motor sensory is appreciable. DIAGNOSTIC DATA: Potassium is 4.1, BUN and creatinine is 76 and 2.3, on admission it was 89 and 2.7, hemoglobin was 9.8, followup is 8.9 with hematocrit 27.6. White count 3.9, platelet count 145,000. TSH 0.05. Electrocardiogram reveals sinus bradycardia with LVH with repolarization abnormalities. Chest x-ray is not available for review. CT of the abdomen and pelvis reveals diverticulosis with no evidence of acute diverticulitis. IMPRESSION: 1. Abdominal pain and apparent gastrointestinal bleeding, exact cause unclear. 2. Bradycardia tachycardia syndrome now with paroxysmal atrial flutter and fibrillation in addition to her marked sinus pauses. 3. Aortic valve disease status post mechanical St. Asa valve. 4. Rest of problems as noted. RECOMMENDATIONS: Anticoagulation can be withheld in a short-term pending clarification of her source of GI bleeding. She will need resumption of anticoagulation as quickly as possible given mechanical valve and in addition to the recent onset of atrial dysrhythmias. Dr. Cristina was contacted for further information and will be updated regarding her progress. The implantable loop recorder will be interrogated for documentation of any further recent dysrhythmias. Given her evidence of bradycardia-tachycardia syndrome plans will be need to be made for current pacemaker implant and rate control therapy for her rapid atrial fibrillation. Further plans and recommendations will be made based upon her clinical course. Thank you for this consultation and I will be happy to follow along as needed. Cliff Mack MD
[2018-07-24] MEDS: Aztreonam 1 Gm in NS 100mL 100 ML IVPB SCH ×3 (05:12→21:09)
[2018-07-24] MEDS: metroNIDAZOLE IV 500 mg/100 ml 500 MG/100 ML BAG IVPB SCH ×3 (05:13→21:10)
--- NOTE | 2018-07-24 06:18 | CP.PCM.PN ---
<Felicia Sears - Last Filed: 07/24/18 13:47> Subjective - Date & Time of Evaluation Date of Evaluation: 07/24/18 Time of Evaluation: 07:00 - Subjective Subjective: Medicine Progress Note for Jacobo Interiano PGY3 Patient seen and examined at bedside. There were no acute overnight events as per nursing staff. Patient reports feeling much better today. She reports her abdominal pain has resolved. Her diarrhea has improved as well but has not resolved. Patient denies chest pain, shortness of breath, nausea/vomiting, fever/chills, numbness/tingling, dysuria or hematuria. Objective - Vital Signs/Intake and Output Vital Signs (last 24 hours): Temp Pulse Resp BP Pulse Ox 98.1 F 56 L 20 128/61 98 07/24/18 06:00 07/24/18 06:00 07/24/18 06:00 07/24/18 06:00 07/24/18 06:00 Intake and Output: 07/23/18 07/24/18 18:59 06:59 Intake Total 1550 120 Balance 1550 120 - Medications Medications: Current Medications Aztreonam (Azactam 1 Gm) 100 mls @ 100 mls/hr IVPB Q8 ISABEL; Protocol Stop: 07/30/18 16:46 Last Admin: 07/24/18 05:12 Dose: 100 mls/hr Metronidazole (Flagyl) 500 mg in 100 mls @ 100 mls/hr IVPB Q8 ISABEL; Protocol Last Admin: 07/24/18 05:13 Dose: 100 mls/hr Insulin Human Lispro (Humalog Low) 0 units SC ACHS ISABEL; Protocol Last Admin: 07/23/18 22:00 Dose: Not Given Loratadine (Claritin) 10 mg PO DAILY [facility] Last Admin: 07/23/18 10:43 Dose: 10 mg Pantoprazole Sodium (Protonix Inj) 40 mg IVP Q12 ISABEL Last Admin: 07/23/18 21:54 Dose: 40 mg - Labs Labs: 07/23/18 06:00 07/23/18 06:00 PT 28.6 SECONDS (9.4-12.5) H 07/22/18 16:00 INR 2.46 07/22/18 16:00 APTT 39.3 Seconds (25.1-36.5) H 07/22/18 16:00 - Constitutional Appears: No Acute Distress - Head Exam Head Exam: ATRAUMATIC, NORMAL INSPECTION, NORMOCEPHALIC - Eye Exam Eye Exam: Normal appearance, PERRL Pupil Exam: NORMAL ACCOMODATION - ENT Exam ENT Exam: Mucous Membranes Moist - Neck Exam Neck Exam: Full ROM, Normal Inspection - Respiratory Exam Respiratory Exam: Clear to Ausculation Bilateral, NORMAL BREATHING PATTERN. absent: Rales, Rhonchi, Wheezes, Stridor - Cardiovascular Exam Cardiovascular Exam: REGULAR RHYTHM, +S1, +S2, Murmur. absent: Gallop, Rubs - GI/Abdominal Exam GI & Abdominal Exam: Soft, Normal Bowel Sounds. absent: Guarding, Rigid, Tende rness, Mass, Rebound - Extremities Exam Extremities Exam: Normal Inspection. absent: Calf Tenderness, Pedal Edema - Neurological Exam Neurological Exam: Alert, Awake, CN II-XII Intact, Normal Gait, Oriented x3 - Psychiatric Exam Psychiatric exam: Normal Affect, Normal Mood - Skin Skin Exam: Dry, Intact, Normal Color, Warm Assessment and Plan - Assessment and Plan (Free Text) Assessment: 1. Abdominal pain - improved - rule out GI bleed v. colitis 2. A.fib with pauses - On Coumadin at home 3. Iron deficiency anemia - Acute on chronic 4. HENRRY - improved - most likely pre-renal from dehydration and diarrhea 5. HTN 6. HLD 7. Mechanical valve 8. DM-II 9. RA 10. Hypothyroidism 11. Depression 12. Gout Plan: Labs and imaging reviewed. Cardiology spoke with patient's entry level electrical engineer, Dr. Rose at [facility]. Patient has been having more pauses lately and has been monitored by her loop recorder. Patient may benefit from a pace maker in the future but would like to be managed by her own entry level electrical engineer. Spoke with anesthesia who prefers patient to be evaluated by her entry level electrical engineer before proceeding with EGD/flex sigmoidoscopy. GI recs appreciated. Diet was advanced and patient is tolerating. Hgb dropped to 8.0. Will transfer 2U PRBC. Will recheck Hgb in AM. INR is therapeutic. Coumadin and anticoagulants on hold for now. Patient on Azactam and Flagyl as per ID. HENRRY improved after hydration. Plan is for patient to be d/c home tomorrow and follow up with Injection Molding Machine Operator, Dr. Rose at [facility] on Saturday and get GI workup at [facility]. Case seen, discussed and reviewed with Dr. Tamia Sears PGY3 <Luiz Cantrell - Last Filed: 07/24/18 16:17> Objective - Vital Signs/Intake and Output Vital Signs (last 24 hours): Temp Pulse Resp BP Pulse Ox 98.4 F 61 19 145/48 L 98 07/24/18 12:00 07/24/18 12:00 07/24/18 12:00 07/24/18 12:00 07/24/18 06:00 Intake and Output: 07/24/18 07/24/18 06:59 18:59 Intake Total 1120 Balance 1120 - Medications Medications: Current Medications Aztreonam (Azactam 1 Gm) 100 mls @ 100 mls/hr IVPB Q8 ISABEL; Protocol Stop: 07/30/18 16:46 Last Admin: 07/24/18 14:47 Dose: 100 mls/hr Metronidazole (Flagyl) 500 mg in 100 mls @ 100 mls/hr IVPB Q8 ISABEL; Protocol Last Admin: 07/24/18 05:13 Dose: 100 mls/hr Insulin Human Lispro (Humalog Low) 0 units SC ACHS ISABEL; Protocol Last Admin: 07/24/18 12:26 Dose: Not Given Loratadine (Claritin) 10 mg PO DAILY [facility] Last Admin: 07/24/18 10:37 Dose: 10 mg Pantoprazole Sodium (Protonix Ec Tab) 40 mg PO 0600 [facility] - Labs Labs: 07/24/18 05:45 07/24/18 05:45 PT 34.7 SECONDS (9.4-12.5) H 07/24/18 05:45 INR 2.95 07/24/18 05:45 APTT 39.3 Seconds (25.1-36.5) H 07/22/18 16:00 Assessment and Plan - Assessment and Plan (Free Text) Plan: Pt seen and examined. I have reviewed the note of the medical sales representative and agree with it. I have discussed the assessment and plan with the resident. I have reviewed the patient's labs and medications. Pt with abd pain. CT did not show any significant causes. The pt may have colitis or gastroenteritis. I spoke to GI. She is feeling better. She does have low Hb and will need a transfusion. She has refused endoscopy and sigmoidoscopy. She prefers to go to [facility]. She understands that she may be bleeding. She is on mechanical valve and needs to be on anticoagulation. Her INR is therapeutic. No signs of active bleeding. She was on IVF and this may have also caused the Hb to decrease. Will place her on a diet.
[2018-07-24 06:43] LABS: INR 2.95; PROTHROMBIN TIME 34.7 SECONDS (9.4-12.5)
[2018-07-24 06:54] LABS: MEAN CELL VOLUME 84.5 fl (80.0-105.0); MEAN CORPUSCULAR HEMOGLOBIN 26.4 pg (25.0-35.0); MEAN CORPUSCULAR HGB CONC 31.3 g/dl (31.0-37.0); MEAN PLATELET VOLUME 11.9 fl (7.0-11.0); RBC 3.03 10^6/uL (3.5-6.1); RED CELL DISTRIBUTION WIDTH 15.7 % (11.5-14.5); WHITE BLOOD COUNT 3.4 10^3/ul (4.5-11.0)
[2018-07-24 07:10] LABS: ALB/GLOB RATIO 1.3 (1.1-1.8); ALBUMIN 3.6 g/dL (3.0-4.8); CALCIUM 9.1 mg/dL (8.4-10.5)
--- NOTE | 2018-07-24 07:44 | CP.PCM.PN ---
<Emeka Kaufmandenise - Last Filed: 07/24/18 11:24> Subjective - Date & Time of Evaluation Date of Evaluation: 07/24/18 Time of Evaluation: 09:45 - Subjective Subjective: PGY-4 GI Fellow Prog Note Pt ambulating in room when seen this AM. State abd pain improved but still with some loose dark stools. Hgb slowly downtrending. 5 point ROS negative other than stated above Objective - Vital Signs/Intake and Output Vital Signs (last 24 hours): Temp Pulse Resp BP Pulse Ox 98.1 F 56 L 20 128/61 98 07/24/18 06:00 07/24/18 06:00 07/24/18 06:00 07/24/18 06:00 07/24/18 06:00 Intake and Output: 07/24/18 07/24/18 06:59 18:59 Intake Total 1120 Balance 1120 - Medications Medications: Current Medications Aztreonam (Azactam 1 Gm) 100 mls @ 100 mls/hr IVPB Q8 ISABEL; Protocol Stop: 07/30/18 16:46 Last Admin: 07/24/18 05:12 Dose: 100 mls/hr Metronidazole (Flagyl) 500 mg in 100 mls @ 100 mls/hr IVPB Q8 ISABEL; Protocol Last Admin: 07/24/18 05:13 Dose: 100 mls/hr Insulin Human Lispro (Humalog Low) 0 units SC ACHS ISABEL; Protocol Last Admin: 07/23/18 22:00 Dose: Not Given Loratadine (Claritin) 10 mg PO DAILY [facility] Last Admin: 07/23/18 10:43 Dose: 10 mg Pantoprazole Sodium (Protonix Inj) 40 mg IVP Q12 [facility] Last Admin: 07/23/18 21:54 Dose: 40 mg - Labs Labs: 07/24/18 05:45 07/24/18 05:45 PT 34.7 SECONDS (9.4-12.5) H 07/24/18 05:45 INR 2.95 07/24/18 05:45 APTT 39.3 Seconds (25.1-36.5) H 07/22/18 16:00 - Constitutional Appears: Well, Non-toxic, No Acute Distress - Head Exam Head Exam: ATRAUMATIC, NORMAL INSPECTION - Eye Exam Eye Exam: EOMI. absent: Conjunctival injection, Scleral icterus - ENT Exam ENT Exam: Mucous Membranes Moist, Normal External Ear Exam. absent: Mucous Membranes Dry - Respiratory Exam Respiratory Exam: NORMAL BREATHING PATTERN. absent: Accessory Muscle Use - Cardiovascular Exam Cardiovascular Exam: REGULAR RHYTHM, RRR - GI/Abdominal Exam GI & Abdominal Exam: Soft, Normal Bowel Sounds. absent: Bruit, Distended, Firm, Guarding, Rigid, Tenderness, Mass, Organomegaly, Pulsatile Mass, Rebound Assessment and Plan - Assessment and Plan (Free Text) Assessment: 68 yo WF with h/o duodenal ulcers, RA on immunosuppression, AVR on warfarin p resenting with abdominal pain and black diarrhea. # Abd Pain, Dark loose stools: The constellation of abd pain and diarrhea with possible dietary could point to infectious enterocolitis as etiology as is higher risk given immunosuppression. Also at risk for upper GI bleed if what she is reporting is actually melena. Vitals stable and Hgb near baselineon admission but downtrending. CT without clear explanation for symptoms as limited due to no PO contrast. # Diverticulosis: Seen on CT but no signs of -itis. # AVR replacement: On warfarin. Mechanical valve. Plan: - Extensive discussion with patient and consultants today about how to proceed given downtrending Hgb in setting of anticoagulation and cardiac dysrhythmia noted --- Ultimately, pt declined blood transfusion and endoscopic evaluation at this time --- Plan is to monitor monitor today with below plan and likely DC for close followup with patients primary early childhood teacher assistant at [facility]? prior to any reversal of anticoagulation and decisions on endoscopy. - Empiric antibiotics: Metro and Aztreonam per ID - Clear Liq Diet -> Soft fiet today - Check Cdiff, Stool Cx, O&P, Blood Cx - Spportive care with IVF - PPI IV BID - > PO Daily - Hold Warfarin for now, but likely resume tomorrow. INR has remained elevated. Pt seen and examined with Dr. Knapp; see attestation for further recs/changes. <Jayson Knapp V - Last Filed: 07/24/18 23:08> Objective - Vital Signs/Intake and Output Vital Signs (last 24 hours): Temp Pulse Resp BP Pulse Ox 99.1 F 54 L 18 129/51 L 98 07/24/18 19:58 07/24/18 19:58 07/24/18 19:58 07/24/18 19:58 07/24/18 06:00 Intake and Output: 07/24/18 07/25/18 18:59 06:59 Intake Total 1180 760 Output Total 5 Balance 1175 760 - Medications Medications: Current Medications Aztreonam (Azactam 1 Gm) 100 mls @ 100 mls/hr IVPB Q8 ISABEL; Protocol Stop: 07/30/18 16:46 Last Admin: 07/24/18 21:09 Dose: 100 mls/hr Metronidazole (Flagyl) 500 mg in 100 mls @ 100 mls/hr IVPB Q8 ISABEL; Protocol Last Admin: 07/24/18 21:10 Dose: 100 mls/hr Insulin Human Lispro (Humalog Low) 0 units SC ACHS ISABEL; Protocol Last Admin: 07/24/18 18:01 Dose: 1 u Loratadine (Claritin) 10 mg PO DAILY [facility] Last Admin: 07/24/18 10:37 Dose: 10 mg Pantoprazole Sodium (Protonix Ec Tab) 40 mg PO 0600 [facility] - Labs Labs: 07/24/18 05:45 07/24/18 05:45 PT 34.7 SECONDS (9.4-12.5) H 07/24/18 05:45 INR 2.95 07/24/18 05:45 APTT 39.3 Seconds (25.1-36.5) H 07/22/18 16:00 Attending/Attestation - Attestation I have personally seen and examined this patient.: Yes I have fully participated in the care of the patient.: Yes I have reviewed all pertinent clinical information, including history, physical exam and plan: Yes Notes (Text): This is an addendum to GI progress report dictated by the GI Fellow.The patient was seen and examined earlier. Medical records, lab studies, imagings were reviewed. Last 24 hours events reviewed. Agreed with the above treatment plan as outlined in GI Fellow 's notes with the addition of the following Diarrhea is improving No further episodes of bleeding Abdominal discomfort On examination abdomen soft Mild tenderness of depalpation in the lower abdomen Continue IV antibiotics as per ID Tele finding of long past noted Patient refused EGD/colonoscopy She wants to have her heart checked and followed up by her early childhood teacher assistant at [facility] Discussed with Dr. Fernandez and Dr. Cantrell 07/24/18 23:08
[2018-07-24] MEDS: Insulin Lispro (humaLOG) LOW Coverage SC SCH ×4 (08:43→22:00)
--- NOTE | 2018-07-24 08:58 | CP.PCM.PN ---
Subjective - Date & Time of Evaluation Date of Evaluation: 07/24/18 Time of Evaluation: 07:00 - Subjective Subjective: Stable on 2R. No CP or SOB. Diarrea better. No abd. pain. V/S noted. RSR/SB 50 's to 60's. 3 -5 sec asystoles noted previously, PAF/PAFl noted PE: Lungs: clear Cor.: S1S2 Abd.: soft Ext: no edema Neuro.: alert Labs noted: H/H = 8/25.6, INR = 2.95, Cr.= 1.7, K+= 4.3 BC X2 NG at 24 hrs. Objective - Vital Signs/Intake and Output Vital Signs (last 24 hours): Temp Pulse Resp BP Pulse Ox 98.1 F 56 L 20 128/61 98 07/24/18 06:00 07/24/18 06:00 07/24/18 06:00 07/24/18 06:00 07/24/18 06:00 Intake and Output: 07/24/18 07/24/18 06:59 18:59 Intake Total 1120 Balance 1120 - Medications Medications: Current Medications Aztreonam (Azactam 1 Gm) 100 mls @ 100 mls/hr IVPB Q8 [facility]ABEL; Protocol Stop: 07/30/18 16:46 Last Admin: 07/24/18 05:12 Dose: 100 mls/hr Metronidazole (Flagyl) 500 mg in 100 mls @ 100 mls/hr IVPB Q8 ISABEL; Protocol Last Admin: 07/24/18 05:13 Dose: 100 mls/hr Insulin Human Lispro (Humalog Low) 0 units SC ACHS ISABEL; Protocol Last Admin: 07/23/18 22:00 Dose: Not Given Loratadine (Claritin) 10 mg PO DAILY [facility] Last Admin: 07/23/18 10:43 Dose: 10 mg Pantoprazole Sodium (Protonix Inj) 40 mg IVP Q12 [facility] Last Admin: 07/23/18 21:54 Dose: 40 mg - Labs Labs: 07/24/18 05:45 07/24/18 05:45 PT 34.7 SECONDS (9.4-12.5) H 07/24/18 05:45 INR 2.95 07/24/18 05:45 APTT 39.3 Seconds (25.1-36.5) H 07/22/18 16:00 Assessment and Plan - Assessment and Plan (Free Text) Assessment: Abd. pain, diarrhea, melena Anemia/GIB Remote AVR/St. Asa valve 1988, on chronic warfarin Joe-tachy Syndrome, 3 - 5 second asystoles on tel. H/O Syncope/Loop Recorder Diabetes Gout RA HBP Reshma, int. hemorrhoids Depression Plan: GI [facility] for GIB [facility] Hold warfarin and monitor INRs daily. IV Heparin when INR < 1.7. Pt is aware of B-T syn and long asystoles. She prefers to have this managed by her electronic imaging system operator: Dr. Jacobo Rose in [facility]. We feel a PPM should be considered. Will have [employer] interrogate the loop recorder today. Echocardiogram I spoke with Dr. Cantrell today. Dr. Mack spoke with Dr. Rose yesterday. Consider transfer to [facility] so she can be under the care of her long-time cardiolog ist.
[2018-07-24 09:40] LABS: IRON 65 ug/dL (45-180)
[2018-07-24 09:49] LABS: % IRON SATURATION 15 % (20-55); TOTAL IRON BINDING CAPACITY 438 ug/dL (265-497)
--- NOTE | 2018-07-24 17:08 | CP.PCM.PN ---
Subjective - Date & Time of Evaluation Date of Evaluation: 07/24/18 Time of Evaluation: 10:45 - Subjective Subjective: No fevers, not in distress, abdominal cramps are better, no nausea or vomiting, less loose stools, and no more blood in the stool at the moment. Objective - Vital Signs/Intake and Output Vital Signs (last 24 hours): Temp Pulse Resp BP Pulse Ox 98.1 F 56 L 20 128/61 98 07/24/18 06:00 07/24/18 06:00 07/24/18 06:00 07/24/18 06:00 07/24/18 06:00 Intake and Output: 07/23/18 07/24/18 18:59 06:59 Intake Total 1550 1120 Balance 1550 1120 - Medications Medications: Current Medications Aztreonam (Azactam 1 Gm) 100 mls @ 100 mls/hr IVPB Q8 [facility]; Protocol Stop: 07/30/18 16:46 Last Admin: 07/24/18 05:12 Dose: 100 mls/hr Metronidazole (Flagyl) 500 mg in 100 mls @ 100 mls/hr IVPB Q8 [facility]; Protocol Last Admin: 07/24/18 05:13 Dose: 100 mls/hr Insulin Human Lispro (Humalog Low) 0 units SC ACHS [facility]; Protocol Last Admin: 07/23/18 22:00 Dose: Not Given Loratadine (Claritin) 10 mg PO DAILY [facility] Last Admin: 07/23/18 10:43 Dose: 10 mg Pantoprazole Sodium (Protonix Inj) 40 mg IVP Q12 [facility] Last Admin: 07/23/18 21:54 Dose: 40 mg - Labs Labs: 07/23/18 06:00 07/23/18 06:00 PT 28.6 SECONDS (9.4-12.5) H 07/22/18 16:00 INR 2.46 07/22/18 16:00 APTT 39.3 Seconds (25.1-36.5) H 07/22/18 16:00 - Constitutional Appears: No Acute Distress, Chronically Ill - Head Exam Head Exam: NORMAL INSPECTION - Respiratory Exam Respiratory Exam: Decreased Breath Sounds - Cardiovascular Exam Cardiovascular Exam: +S1, +S2 - GI/Abdominal Exam GI & Abdominal Exam: Soft. absent: Tenderness Assessment and Plan - Assessment and Plan (Free Text) Plan: Assessment R/O colitis in this patient with dark stools, loose bowel movement HTN gout S/P mechanical AV valve replacement atrial fibrillation rheumatoid arthritis uterine cancer S/P hysterectomy DM hypothyroidism chronic anemia Plan continue Azactam and Flagyl day 2 pending blood cx, stool cx, fecal leukocytes, stool for O and P, stool for C. diff. follow up further recommendations of GI reviewed CT A/P which showed diverticulosis will continue to monitor clinically
[2018-07-25] MEDS: Aztreonam 1 Gm in NS 100mL 100 ML IVPB SCH ×2 (05:39→05:49)
[2018-07-25] MEDS: metroNIDAZOLE IV 500 mg/100 ml 500 MG/100 ML BAG IVPB SCH ×2 (05:43→05:49)
[2018-07-25] MEDS ORDERED: Pantoprazole 40 mg EC Tab PO SCH (06:00)
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
[2018-07-25 06:33] VITALS: TEMP 98.5
[2018-07-25 07:07] LABS: MEAN CELL VOLUME 84.9 fl (80.0-105.0); MEAN CORPUSCULAR HEMOGLOBIN 27.7 pg (25.0-35.0); MEAN CORPUSCULAR HGB CONC 32.7 g/dl (31.0-37.0); RBC 4.04 10^6/uL (3.5-6.1); RED CELL DISTRIBUTION WIDTH 15.4 % (11.5-14.5)
[2018-07-25 07:15] LABS: HEMOGLOBIN 11.2 g/dL (12.0-16.0)
[2018-07-25 07:23] LABS: INR 1.92; PROTHROMBIN TIME 22.4 SECONDS (9.4-12.5)
[2018-07-25 07:41] LABS: CALCIUM 9.8 mg/dL (8.4-10.5)
--- NOTE | 2018-07-25 08:03 | CP.PCM.PN ---
Subjective - Date & Time of Evaluation Date of Evaluation: 07/25/18 Time of Evaluation: 07:00 - Subjective Subjective: Stable on 2R. No CP or SOB. Diarrhea better. No abd. pain. S/P transfusion yesterday V/S noted. RSR/SB 50 's to 60's. PE: Lungs: clear Cor.: S1S2 Abd.: soft Ext: + edema Neuro.: alert Labs noted: H/H = 11.2/34.3 INR = 1.92, Cr.= 1.4. BC X2 NG at 48 hrs. Objective - Vital Signs/Intake and Output Vital Signs (last 24 hours): Temp Pulse Resp BP Pulse Ox 98.5 F 69 20 146/70 96 07/25/18 06:00 07/25/18 06:00 07/25/18 06:00 07/25/18 06:00 07/25/18 06:00 Intake and Output: 07/25/18 07/25/18 06:59 18:59 Intake Total 1205 Balance 1205 - Medications Medications: Current Medications Aztreonam (Azactam 1 Gm) 100 mls @ 100 mls/hr IVPB Q8 ISABEL; Protocol Stop: 07/30/18 16:46 Last Admin: 07/25/18 05:49 Dose: Not Given Metronidazole (Flagyl) 500 mg in 100 mls @ 100 mls/hr IVPB Q8 ISABEL; Protocol Last Admin: 07/25/18 05:49 Dose: Not Given Insulin Human Lispro (Humalog Low) 0 units SC ACHS ISABEL; Protocol Last Admin: 07/24/18 22:00 Dose: Not Given Loratadine (Claritin) 10 mg PO DAILY ISABEL Last Admin: 07/24/18 10:37 Dose: 10 mg Pantoprazole Sodium (Protonix Ec Tab) 40 mg PO 0600 ISABEL Last Admin: 07/25/18 05:43 Dose: 40 mg - Labs Labs: 07/25/18 06:30 07/25/18 06:30 PT 22.4 SECONDS (9.4-12.5) H 07/25/18 06:30 INR 1.92 07/25/18 06:30 APTT 39.3 Seconds (25.1-36.5) H 07/22/18 16:00 Assessment and Plan - Assessment and Plan (Free Text) Assessment: Abd. pain, diarrhea, melena Anemia/GIB/S/P blood transfusion Remote AVR/[employer] Asa valve 1988, on chronic warfarin Joe-tachy Syndrome, 3 - 5 second asystoles on tel., PAF and flutter H/O Syncope/Loop Recorder, interrogated yesterday Diabetes Gout RA HBP Reshma, int. hemorrhoids Depression Plan: GI evaluation for GIB (while on warfarin for [facility] AVR implanted 1988) Hold warfarin and monitor INRs daily. IV Heparin when INR < 1.7. Pt is aware of B-T syn and long asystoles. She prefers to have this managed by her atomic physics professor: Dr. Jacobo Rose in [facility]. We feel a PPM should be considered. Will have [employer] interrogate the loop recorder today. Echocardiogram I spoke with Dr. Cantrell again today. I spoke spoke with Dr. Rose yesterday and he spoke with his patient by phone yesterday. I spoke with anaesthesia yesterday. They are reluctant to do EGD b/o cardiac issues. Transfer to [facility] has been discussed and was discussed again this AM. She says that she is not emotionally able to deal with this situation and that she wants to go home today. Dr. Cantrell and I spoke with her at great length.
[2018-07-25] MEDS: Insulin Lispro (humaLOG) LOW Coverage SC SCH ×2 (08:25→11:50)
--- NOTE | 2018-07-25 08:37 | CP.PCM.PN ---
Objective - Vital Signs/Intake and Output Vital Signs (last 24 hours): Temp Pulse Resp BP Pulse Ox 98.5 F 69 20 146/70 96 07/25/18 06:00 07/25/18 06:00 07/25/18 06:00 07/25/18 06:00 07/25/18 06:00 Intake and Output: 07/25/18 07/25/18 06:59 18:59 Intake Total 1205 Balance 1205 - Medications Medications: Current Medications Aztreonam (Azactam 1 Gm) 100 mls @ 100 mls/hr IVPB Q8 ISABEL; Protocol Stop: 07/30/18 16:46 Last Admin: 07/25/18 05:49 Dose: Not Given Metronidazole (Flagyl) 500 mg in 100 mls @ 100 mls/hr IVPB Q8 ISABEL; Protocol Last Admin: 07/25/18 05:49 Dose: Not Given Insulin Human Lispro (Humalog Low) 0 units SC ACHS ISABEL; Protocol Last Admin: 07/25/18 08:25 Dose: Not Given Loratadine (Claritin) 10 mg PO DAILY ISABEL Last Admin: 07/24/18 10:37 Dose: 10 mg Pantoprazole Sodium (Protonix Ec Tab) 40 mg PO 0600 ISABEL Last Admin: 07/25/18 05:43 Dose: 40 mg - Labs Labs: 07/25/18 06:30 07/25/18 06:30 PT 22.4 SECONDS (9.4-12.5) H 07/25/18 06:30 INR 1.92 07/25/18 06:30 APTT 39.3 Seconds (25.1-36.5) H 07/22/18 16:00 Assessment and Plan - Assessment and Plan (Free Text) Assessment: 68 yo WF with h/o duodenal ulcers, RA on immunosuppression, AVR on warfarin presenting with abdominal pain and black diarrhea. # Abd Pain, Dark loose stools: The constellation of abd pain and diarrhea with possible dietary could point to infectious enterocolitis as etiology as is higher risk given immunosuppression. Also at risk for upper GI bleed if what she is reporting is actually melena. Vitals stable and Hgb near baselineon admission but downtrending. CT without clear explanation for symptoms as limited due to no PO contrast. # Diverticulosis: Seen on CT but no signs of -itis. # AVR replacement: On warfarin. Mechanical valve. Plan: Prelim note, recs not final until signed and staffed - Extensive discussion with patient and consultants 07/24 about how to proceed given downtrending Hgb in setting of anticoagulation and cardiac dysrhythmia noted. Ultimately, pt declined endoscopic evaluation at this time - Antibiotics per ID - Regular diet today - Check Cdiff, O&P negative - Stool Cx pending - Supportive care - PO PPI daily - INR subtherapeutic today Pt seen and examined with Dr. Knapp; see attestation for further recs/changes.
[2018-07-25 11:52] VITALS: BP 132/53; PULSE 55; RESP 18; O2SAT 98
--- NOTE | 2018-07-25 18:24 | CP.PCM.PN ---
Subjective - Date & Time of Evaluation Date of Evaluation: 07/25/18 Time of Evaluation: 11:55 - Subjective Subjective: Patient feels much better, no fevers, not in distress, abdominal cramps much improved, no blood in stools currently. Objective - Vital Signs/Intake and Output Vital Signs (last 24 hours): Temp Pulse Resp BP Pulse Ox 98.5 F 55 L 18 132/53 L 98 07/25/18 06:00 07/25/18 09:00 07/25/18 09:00 07/25/18 09:00 07/25/18 09:00 Intake and Output: 07/25/18 07/25/18 06:59 18:59 Intake Total 1205 Balance 1205 - Labs Labs: 07/25/18 06:30 07/25/18 06:30 PT 22.4 SECONDS (9.4-12.5) H 07/25/18 06:30 INR 1.92 07/25/18 06:30 APTT 39.3 Seconds (25.1-36.5) H 07/22/18 16:00 - Constitutional Appears: No Acute Distress, Chronically Ill - Head Exam Head Exam: NORMAL INSPECTION - Respiratory Exam Respiratory Exam: Decreased Breath Sounds - Cardiovascular Exam Cardiovascular Exam: +S1, +S2 - GI/Abdominal Exam GI & Abdominal Exam: Soft. absent: Tenderness Assessment and Plan - Assessment and Plan (Free Text) Plan: Assessment R/O colitis in this patient with dark stools, loose bowel movement HTN gout S/P mechanical AV valve replacement atrial fibrillation rheumatoid arthritis uterine cancer S/P hysterectomy DM hypothyroidism chronic anemia Plan on Azactam and Flagyl day 3 - cultures have been negative - when ready for discharge, may switch to PO Bactrim and Flagyl for another 7 days with outpatient follow up with GI and PMD
== END 2018-07-25 14:46 | disposition home or self-care (01) | DRG 812 ==
LOC: ED 14:54 → ERH 18:35 → 2RNO 20:50
PROVIDERS: ADMIT Internal Medicine Nephrology; ATTEND Internal Medicine Nephrology
PROC: 30233N1 Transfusion of Nonautologous Red Blood Cells into Peripheral Vein, Percutaneous Approach (ICD-10-PCS; principal; 2018-07-24)
DX: D50.9 Iron deficiency anemia, unspecified (principal); I48.92 Unspecified atrial flutter; N17.9 Acute kidney failure, unspecified; I49.5 Sick sinus syndrome; I48.2 Chronic atrial fibrillation; N18.3 Chronic kidney disease, stage 3 (moderate); I12.9 Hypertensive chronic kidney disease with stage 1 through stage 4 chronic kidney disease, or unspecified chronic kidney disease; F32.9 Major depressive disorder, single episode, unspecified; E86.0 Dehydration; E11.40 Type 2 diabetes mellitus with diabetic neuropathy, unspecified; E11.22 Type 2 diabetes mellitus with diabetic chronic kidney disease; M10.9 Gout, unspecified; M06.9 Rheumatoid arthritis, unspecified; K57.90 Diverticulosis of intestine, part unspecified, without perforation or abscess without bleeding; E87.8 Other disorders of electrolyte and fluid balance, not elsewhere classified; E03.9 Hypothyroidism, unspecified; I48.0 Paroxysmal atrial fibrillation; E78.5 Hyperlipidemia, unspecified; I35.9 Nonrheumatic aortic valve disorder, unspecified; R26.81 Unsteadiness on feet; K64.8 Other hemorrhoids; Z85.42 Personal history of malignant neoplasm of other parts of uterus; Z79.84 Long term (current) use of oral hypoglycemic drugs; Z95.2 Presence of prosthetic heart valve; Z79.899 Other long term (current) drug therapy; Z79.01 Long term (current) use of anticoagulants; Z90.710 Acquired absence of both cervix and uterus; Z87.11 Personal history of peptic ulcer disease; Z86.73 Personal history of transient ischemic attack (TIA), and cerebral infarction without residual deficits; Z80.49 Family history of malignant neoplasm of other genital organs; Z80.1 Family history of malignant neoplasm of trachea, bronchus and lung